=== PATIENT | female | born 1960 | race Caucasian/White ===

== ENCOUNTER 2023-04-04 16:25 | Observation (INO) | payer MEDICARE ==
[2023-04-04 18:08] LABS: Absolute Neutrophil Ct (ANC) 12.97 x10^3/uL (1.4-6.9); BASOPHIL % 0.3 % (0.0-0.4); Basophil (Absolute #) 0.04 x10^3/uL (0-0.4); Eosinophil (Absolute #) 0 x10^3/uL (0-0.5); Hemoglobin 12.8 g/dL (12.0-16.0); IMMATURE GRAN # 0.07 x10^3u/L (0.00-0.03); IMMATURE GRAN % 0.5 % (0.00-0.4); Lymphocyte (Absolute #) 1.69 x10^3/uL (1.0-4.6); Lymphocytes % 11.1 % (24.0-44.0); Mean Corpuscular Hemoglobin 30.8 pg (26-32); Mean Corpuscular Hgb Concent. 30.5 g/dL (32-36); Mean Platelet Volume 9.5 fL (7.5-11.0); Monocyte (Absolute #) 0.39 x10^3/uL (0.0-1.3); Monocytes % 2.6 % (0.0-12.0); Neutrophil % 85.5 % (36.0-66.0); Platelet Count 357 x10^3/uL (150-450); Red Blood Count 4.16 x10^6/uL (4.1-5.4); Red Cell Distribution Width 13.3 % (11.5-14.0); White Blood Count 15.2 x10^3/uL (4.0-10.5)
[2023-04-04 18:28] LABS: ALBUMIN 4.7 g/dL (3.5-5.0); ALKALINE PHOSPHATASE 175 U/L (38-126); BLOOD UREA NITROGEN 27 mg/dL (7-17); CHLORIDE 99 mmol/L (98-107); Calcium 9.7 mg/dL (8.4-10.2); EST GLOMERULAR FILTRATION RATE 84.3 ML/MIN; Potassium 5.6 mmol/L (3.5-5.1); SGOT/AST 22 U/L (14-36); SGPT/ALT 18 U/L (0-35); SODIUM 129 mmol/L (137-145); Total Protein 7.7 g/dL (6.3-8.2)
[2023-04-04 18:41] LABS: Glucose 556 mg/dL (74-106)
[2023-04-04 18:42] LABS: Carbon Dioxide < 5 mmol/L (22-30)
[2023-04-04] MEDS ORDERED: Sodium Chloride 0.9% 1000 ML 1,000 ML IV STA (19:45)
--- NOTE | 2023-04-04 19:52 | ERPHSYRPT ---
- History of Present Illness Time Seen by Provider: 04/04/23 17:00 Source: patient Exam Limitations: no limitations Patient Subjective Stated Complaint: C/O high blood sugar that she just realized was happening prior to coming to the ER. States she knew it was high related to symptom of nausea. Triage Nursing Assessment: Patient brought back to ER. She is alert and oriented but anxious. She is speaking very rapidly. Patient on her cell phone for most of the triage. No active vomitting. JESSICA DICKSON. Blood sugar per ER glucometer at 16:45 is 524. Physician History: Patient is a 62-year-old female type II diabetic presents to our ED for evaluation of elevated blood glucose. Patient states she took her sliding scale insulin today which translated to 2 units of NovoLog. Patient rechecked her glucose and it was still elevated. No other complaints. Patient tachycardic upon arrival to our ED. No fever. Patient appeared somewhat anxious. Timing/Duration: today Severity: moderate Modifying Factors: Improves With: nothing Associated Symptoms: denies symptoms Allergies/Adverse Reactions: Latex, Natural Rubber Allergy (Verified 04/04/23 16:52) Penicillins Allergy (Verified 04/04/23 16:52) Home Medications: Atorvastatin Calcium [Lipitor 40Mg] 1 tab PO DAILY 04/04/23 [History] Insulin Aspart [Novolog] See Protocol SQ AC 04/04/23 [History] Insulin Glargine [Lantus Insulin] 25 units SQ HS 04/04/23 [History] Losartan Potassium 50 mg [Cozaar 50 MG] 1 tab PO DAILY 04/04/23 [History] PANTOPRAZOLE 40 mg Tablet [Protonix 40MG Tablet] 1 tab PO DAILY 04/04/23 [History] Sucralfate 1 gm [Carafate 1 GM] 1 tab PO ACHS 04/04/23 [History] carvediloL [Carvedilol] 1 tab PO BID 04/04/23 [History] clonazePAM [Clonazepam] 1 tab PO BID PRN 04/04/23 [History] Hx Tetanus, Diphtheria Vaccination/Date Given: Yes Hx Influenza Vaccination/Date Given: No Hx Pneumococcal Vaccination/Date Given: No Immunizations Up to Date: Yes Travel Risk - International Travel Have you traveled outside of the country in past 3 weeks: No - Coronavirus Screening Are you exhibiting any of the following symptoms?: No Close contact with a COVID-19 positive Pt in past 14-21 Days: No - Vaccine Status Have you recieved a Covid-19 vaccination: No - Review of Systems Constitutional: No Symptoms, No Fever, No Chills Eyes: No Symptoms Ears, Nose, & Throat: No Symptoms Respiratory: No Symptoms, No Cough, No Dyspnea Cardiac: No Symptoms, No Chest Pain, No Edema, No Syncope Abdominal/Gastrointestinal: No Symptoms, No Abdominal Pain, No Nausea, No Vomiting, No Diarrhea Genitourinary Symptoms: No Symptoms, No Dysuria Musculoskeletal: No Symptoms, No Back Pain, No Neck Pain Skin: No Symptoms, No Rash Neurological: No Symptoms, No Dizziness, No Focal Weakness, No Sensory Changes Psychological: No Symptoms Endocrine: No Symptoms Hematologic/Lymphatic: No Symptoms Immunological/Allergic: No Symptoms All Other Systems: Reviewed and Negative - Past Medical History Pertinent Past Medical History: Yes Cardiac History: High Cholesterol, Hypertension Endocrine Medical History: Diabetes Type II Musculoskeletal History: Fractures, Other Psycho-Social History: Anxiety, Depression - Past Surgical History Past Surgical History: Yes Gastrointestinal: Appendectomy Other Surgical History: right elbow, right shoulder, right ankle, c spine fusion, lumbar spine fusion - Social History Smoking Status: Former smoker Exposure to second hand smoke: No Drug Use: none Patient Lives Alone: No - Nursing Vital Signs Nursing Vital Signs: Initial Vital Signs Temperature 97.7 F 04/04/23 16:45 Pulse Rate 136 H 04/04/23 16:45 Respiratory Rate 22 04/04/23 16:45 Blood Pressure 108/58 04/04/23 16:45 O2 Sat by Pulse Oximetry 100 04/04/23 16:45 Pain Scale Pain Intensity 0 - Physical Exam General Appearance: no apparent distress, alert, other (Who is my respiration observed) Eye Exam: PERRL/EOMI, eyes nml inspection Ears, Nose, Throat Exam: normal ENT inspection, TMs normal, pharynx normal, moist mucous membranes Neck Exam: normal inspection, non-tender, supple, full range of motion Respiratory Exam: normal breath sounds, lungs clear, airway intact, No respiratory distress Cardiovascular Exam: regular rate/rhythm, normal heart sounds, normal peripheral pulses Gastrointestinal/Abdomen Exam: soft, normal bowel sounds, No tenderness, No mass Back Exam: normal inspection, normal range of motion, No CVA tenderness, No vertebral tenderness Extremity Exam: normal inspection, normal range of motion, pelvis stable Neurologic Exam: alert, oriented x 3, cooperative, normal mood/affect, nml cerebellar function, nml station & gait, sensation nml, No motor deficits Skin Exam: normal color, warm, dry, No rash Lymphatic Exam: No adenopathy SpO2 Interpretation: normal SpO2: 100 O2 Delivery: Room Air - Course Nursing assessment & vital signs reviewed: Yes Ordered Tests: Active Orders 24 hr Category Date Time Status EKG-ER Only STAT Care 04/04/23 19:45 Active IV Insertion STAT Care 04/04/23 19:45 Active Pulse Oximetry (ED) STAT Care 04/04/23 19:45 Active CBC W DIFF Stat Lab 04/04/23 17:32 Completed CMP Stat Lab 04/04/23 18:00 Completed PHOSPHOROUS Stat Lab 04/04/23 19:47 Completed POCT GLUCOSE Stat Lab 04/04/23 16:45 Completed VENOUS BLOOD GAS Urgent Lab 04/04/23 19:58 Received Transfer Order Routine Transfer 04/04/23 Ordered Medication Summary Generic Name Dose Route Start Last Admin Trade Name Freq PRN Reason Stop Dose Admin Sodium Chloride 1,000 mls @ 999 mls/hr 04/04/23 19:45 Sodium Chloride 0.9% 1000 Ml IV 04/04/23 20:45 .Q1H1M STA INSULIN REGULAR IN 0.9 % NACL 100 unit in 100 mls @ 6.37 mls/hr 04/04/23 19:57 Myxredlin 100 Unit/100 Ml Bag IV 05/04/23 19:56 .[id number] PRN HYPERGLYCEMIA Protocol 0.1 UNIT/KG/HR Lab/Rad Data: Laboratory Result Diagrams 04/04/23 17:32 04/04/23 18:00 Laboratory Results 04/04/23 04/04/23 04/04/23 Range/Units 19:47 18:00 17:32 WBC 15.2 H (4.0-10.5) x10^3/uL RBC 4.16 (4.1-5.4) x10^6/uL Hgb 12.8 (12.0-16.0) g/dL Hct 42.0 (35-47) % MCV 101.0 H (78-100) fL MCH 30.8 (26-32) pg MCHC 30.5 L (32-36) g/dL RDW 13.3 (11.5-14.0) % Plt Count 357 (150-450) x10^3/uL MPV 9.5 (7.5-11.0) fL Gran % 85.5 H (36.0-66.0) % Immature Gran % (Auto) 0.5 H (0.00-0.4) % Nucleat RBC Rel Count 0.0 (0.00-0.1) % Eos # (Auto) 0 (0-0.5) x10^3/uL Immature Gran # (Auto) 0.07 H (0.00-0.03) x10^3u/L Absolute Lymphs (auto) 1.69 (1.0-4.6) x10^3/uL Absolute Monos (auto) 0.39 (0.0-1.3) x10^3/uL Absolute Nucleated RBC 0.00 (0.00-0.01) x10^3u/L Lymphocytes % 11.1 L (24.0-44.0) % Monocytes % 2.6 (0.0-12.0) % Eosinophils % 0.0 (0.00-5.0) % Basophils % 0.3 (0.0-0.4) % Absolute Granulocytes 12.97 H (1.4-6.9) x10^3/uL Basophils # 0.04 (0-0.4) x10^3/uL Sodium 129 L (137-145) mmol/L Potassium 5.6 H (3.5-5.1) mmol/L Chloride 99 (98-107) mmol/L Carbon Dioxide < 5 L* (22-30) mmol/L Anion Gap TNP BUN 27 H (7-17) mg/dL Creatinine 0.80 (0.52-1.04) mg/dL Estimated GFR 84.3 ML/MIN Glucose 556 H* (74-106) mg/dL POC Glucometer (50 to 500) mg/dL Calcium 9.7 (8.4-10.2) mg/dL Phosphorus 5.5 H (2.5-4.5) mg/dL Total Bilirubin 0.90 (0.2-1.3) mg/dL AST 22 (14-36) U/L ALT 18 (0-35) U/L Alkaline Phosphatase 175 H (38-126) U/L Serum Total Protein 7.7 (6.3-8.2) g/dL Albumin 4.7 (3.5-5.0) g/dL 04/04/23 Range/Units 16:45 WBC (4.0-10.5) x10^3/uL RBC (4.1-5.4) x10^6/uL Hgb (12.0-16.0) g/dL Hct (35-47) % MCV (78-100) fL MCH (26-32) pg MCHC (32-36) g/dL RDW (11.5-14.0) % Plt Count (150-450) x10^3/uL MPV (7.5-11.0) fL Gran % (36.0-66.0) % Immature Gran % (Auto) (0.00-0.4) % Nucleat RBC Rel Count (0.00-0.1) % Eos # (Auto) (0-0.5) x10^3/uL Immature Gran # (Auto) (0.00-0.03) x10^3u/L Absolute Lymphs (auto) (1.0-4.6) x10^3/uL Absolute Monos (auto) (0.0-1.3) x10^3/uL Absolute Nucleated RBC (0.00-0.01) x10^3u/L Lymphocytes % (24.0-44.0) % Monocytes % (0.0-12.0) % Eosinophils % (0.00-5.0) % Basophils % (0.0-0.4) % Absolute Granulocytes (1.4-6.9) x10^3/uL Basophils # (0-0.4) x10^3/uL Sodium (137-145) mmol/L Potassium (3.5-5.1) mmol/L Chloride (98-107) mmol/L Carbon Dioxide (22-30) mmol/L Anion Gap BUN (7-17) mg/dL Creatinine (0.52-1.04) mg/dL Estimated GFR ML/MIN Glucose (74-106) mg/dL POC Glucometer 524 H* (50 to 500) mg/dL Calcium (8.4-10.2) mg/dL Phosphorus (2.5-4.5) mg/dL Total Bilirubin (0.2-1.3) mg/dL AST (14-36) U/L ALT (0-35) U/L Alkaline Phosphatase (38-126) U/L Serum Total Protein (6.3-8.2) g/dL Albumin (3.5-5.0) g/dL - Progress Progress: improved Progress Note: Case discussed with Dr. Mayo at 8:[address] Mayo accepts admission. Plan of care discussed with patient. She agrees to admission to [facility] for further evaluation and treatment of DKA. Admit orders completed. Patient is a 62-year-old female type II diabetic presents to our ED with high blood sugar read on her glucometer as well as rapid respiration. Patient appears to be experiencing immigration coordinator small respiration. Workup reveals a profound anion gap acidosis with hyperglycemia. No other symptomology. Urinalysis pending. Pulmonary exam is nonremarkable. Patient afebrile. Patient has leukocytosis of 15. Hyponatremia of 129 however erected sodium is 135. Bicarb less than 5. Patient has a 27 BUN and creatinine 0.8. BUN to creatinine ratio consistent with dehydration. Patient will require hospitalization for further evaluation and treatment. Admit orders to ICU entered. Potassium is 5.6. No indication for additional potassium at this time. Portions of this note were created with voice recognition technology. There may be grammatical, spelling, punctuation or sound alike errors Complexity problem addressed is high, severe exacerbation with threat to bodily function Critical care time is 180 minutes. Patient is in DKA with profound acidosis. Immediate action indicated to prevent further deterioration. Complex of data reviewed and analyzed is extensive. Test ordered test reviewed. Results analyzed and correlated clinically. Management discussed with hospitalist who accepts admission to observation. Risk of complication and or risk of morbidity/mortality of patient management is high. Patient requires hospitalization/intensive care unit management for further evaluation and treatment of diabetic ketoacidosis Vital stable. Time spent admit patient is approximately 20 minutes. Plan of care established for shared decision making. Portions of this note were created with voice recognition technology. There may be grammatical, spelling, punctuation or sound alike errors 04/04/23 20:09 Discussed with : Other (Maria Esther) Will see patient in: hospital (observation) Counseled pt/family regarding: lab results, diagnosis, rad results - Departure Departure Disposition: Observation Clinical Impression: DKA (diabetic ketoacidosis), Leukocytosis, Hyponatremia, High anion gap metabolic acidosis, Dehydration, Hyperglycemia Condition: Stable Critical Care Time: No Referrals: RYLIE RUIZ DO [Primary Care Provider] - Follow up/PCP as directed
[2023-04-04 20:06] LABS: VBG BASE EXCESS -19.5 (-2.0-2.0); VBG CARBOXYHEMOGLOBIN 5.2 % T HGB (0.0-6.9); VBG HEMOGLOBIN 13.5; VBG O2 SATURATION 70.8 (95-100)
[2023-04-04 20:07] LABS: VBG POTASSIUM 6.5 (3.5-5.1); VBG pH 7.13 (7.32-7.42)
[2023-04-04] MEDS ORDERED: Sodium Chloride 0.9% 1000 ML 1,000 ML ONE (20:14)
[2023-04-04] MEDS: MYXREDLIN 100 UNIT/100 ML BAG 100 UNIT/100 ML PLAST..BAG IV PRN ×2 (20:17→22:53)
--- NOTE | 2023-04-04 20:47 | PCM.HP ---
History of Present Illness - Chief Complaint Chief Complaint: high blood sugars Date: 04/04/23 History of Present Illness: Ms. Muñoz is a 62 year old female with a past medical history significant for hypertension, hyperlipidemia, GERD and diabetes with 7 previous episodes of DKA who recently moved to the area and had no established with a PCP. She was monitoring her sugars but noticed that they were continuing to rise despite giving herself some sliding scale insulin. She started breathing more rapidly, which she took to be a sign of DKA, and came to the ER. There, she was found to have a blood sugar > 500 associated with a sodium of 129 and bicarb < 5. She was tachycardic with HR in the 130s. She was given IVFs, insulin and recommended for admission. - Review of Systems Constitutional: No Fever, No Chills, No Fatigue Eyes: No Eye Redness Ears, Nose, & Throat: No Ear Discharge Respiratory: No Cough, No Short Of Breath, No Wheezing Cardiac: No Chest Pain, No Edema, No Palpitations Abdominal/Gastrointestinal: No Abdominal Pain, No Nausea, No Vomiting, No Diarrhea Genitourinary Symptoms: No Dysuria, No Frequency, No Hematuria Musculoskeletal: No Back Pain, No Neck Pain, No Joint Pain Skin: No Cellulitis, No Rash Neurological: No Dizziness, No Focal Weakness, No Headache Psychological: No Memory Loss, No Mood Changes Endocrine: Polyuria Hematologic/Lymphatic: No Blood Clots, No Easy Bleeding All Other Systems: Reviewed and Negative Medications & Allergies Home Medications: Home Medication List Atorvastatin Calcium [Lipitor 40Mg] 1 tab PO DAILY 04/04/23 [History Confirmed 04/04/23] Insulin Aspart [Novolog] See Protocol SQ AC 04/04/23 [History Confirmed 04/04/23] Insulin Glargine [Lantus Insulin] 25 units SQ HS 04/04/23 [History Confirmed 04/04/23] Losartan Potassium 50 mg [Cozaar 50 MG] 1 tab PO DAILY 04/04/23 [History Confirmed 04/04/23] PANTOPRAZOLE 40 mg Tablet [Protonix 40MG Tablet] 1 tab PO DAILY 04/04/23 [History Confirmed 04/04/23] Sucralfate 1 gm [Carafate 1 GM] 1 tab PO ACHS 04/04/23 [History Confirmed 04/04/23] carvediloL [Carvedilol] 1 tab PO BID 04/04/23 [History Confirmed 04/04/23] clonazePAM [Clonazepam] 1 tab PO BID PRN 04/04/23 [History Confirmed 04/04/23] Allergies/Adverse Reactions: Allergies Allergy/AdvReac Type Severity Reaction Status Date / Time Latex, Natural Rubber Allergy Verified 04/04/23 16:52 Penicillins Allergy Verified 04/04/23 16:52 - Past Medical History Past Medical History: Yes Cardiac History: High Cholesterol, Hypertension Endocrine Medical History: Diabetes Type II Musculoskelatal History: Fractures, Other Pyscho-Social History: Anxiety, Depression - Past Surgical History Past Surgical History: Yes GI Surgical History: Appendectomy Other Surgical History: right elbow, right shoulder, right ankle, c spine fusion, lumbar spine fusion - Social History Smoking Status: Former smoker Exposure to second hand smoke: No Alcohol: None Drug Use: none - Physical Exam Vital Signs: Vital Signs - 24 hr Temp Pulse Resp BP Pulse Ox 04/04/23 20:16 100 04/04/23 20:12 96 04/04/23 16:45 97.7 F 136 H 22 108/58 100 General Appearance: no apparent distress Neurologic Exam: alert, normal mood/affect, No confusion, No slurred speech Ears, Nose, Throat Exam: dry mucous membranes Neck Exam: supple Respiratory Exam: lungs clear Cardiovascular Exam: tachycardia Gastrointestinal/Abdomen Exam: soft Extremity Exam: No swelling, No tenderness Skin Exam: warm, No rash, No jaundice Results - Labs Lab/Micro Results: Lab Results-Last 24 Hours 04/04/23 04/04/23 04/04/23 Range/Units 16:45 17:32 18:00 WBC 15.2 H (4.0-10.5) x10^3/uL RBC 4.16 (4.1-5.4) x10^6/uL Hgb 12.8 (12.0-16.0) g/dL Hct 42.0 (35-47) % MCV 101.0 H (78-100) fL MCH 30.8 (26-32) pg MCHC 30.5 L (32-36) g/dL RDW 13.3 (11.5-14.0) % Plt Count 357 (150-450) x10^3/uL MPV 9.5 (7.5-11.0) fL Gran % 85.5 H (36.0-66.0) % Immature Gran % (Auto) 0.5 H (0.00-0.4) % Nucleat RBC Rel Count 0.0 (0.00-0.1) % Eos # (Auto) 0 (0-0.5) x10^3/uL Immature Gran # (Auto) 0.07 H (0.00-0.03) x10^3u/L Absolute Lymphs (auto) 1.69 (1.0-4.6) x10^3/uL Absolute Monos (auto) 0.39 (0.0-1.3) x10^3/uL Absolute Nucleated RBC 0.00 (0.00-0.01) x10^3u/L Lymphocytes % 11.1 L (24.0-44.0) % Monocytes % 2.6 (0.0-12.0) % Eosinophils % 0.0 (0.00-5.0) % Basophils % 0.3 (0.0-0.4) % Absolute Granulocytes 12.97 H (1.4-6.9) x10^3/uL Basophils # 0.04 (0-0.4) x10^3/uL pO2/FiO2 Ratio % VBG pH (7.32-7.42) VBG pCO2 at Pat Temp (42-55) mm/Hg VBG pO2 at Pat Temp (25-40) mm/Hg VBG HCO3 (22-28) meq/L VBG O2 Sat (Garrett) (95-100) VBG Base Excess (-2.0-2.0) VBG Hemoglobin VBG Carboxyhemoglobin (0.0-6.9) % T HGB POC Potassium (3.5-5.1) Sodium 129 L (137-145) mmol/L Potassium 5.6 H (3.5-5.1) mmol/L Chloride 99 (98-107) mmol/L Carbon Dioxide < 5 L* (22-30) mmol/L Anion Gap TNP BUN 27 H (7-17) mg/dL Creatinine 0.80 (0.52-1.04) mg/dL Estimated GFR 84.3 ML/MIN Glucose 556 H* (74-106) mg/dL POC Glucometer 524 H* (50 to 500) mg/dL Calcium 9.7 (8.4-10.2) mg/dL Phosphorus (2.5-4.5) mg/dL Total Bilirubin 0.90 (0.2-1.3) mg/dL AST 22 (14-36) U/L ALT 18 (0-35) U/L Alkaline Phosphatase 175 H (38-126) U/L Serum Total Protein 7.7 (6.3-8.2) g/dL Albumin 4.7 (3.5-5.0) g/dL 04/04/23 04/04/23 04/04/23 Range/Units 19:47 19:58 20:17 WBC (4.0-10.5) x10^3/uL RBC (4.1-5.4) x10^6/uL Hgb (12.0-16.0) g/dL Hct (35-47) % MCV (78-100) fL MCH (26-32) pg MCHC (32-36) g/dL RDW (11.5-14.0) % Plt Count (150-450) x10^3/uL MPV (7.5-11.0) fL Gran % (36.0-66.0) % Immature Gran % (Auto) (0.00-0.4) % Nucleat RBC Rel Count (0.00-0.1) % Eos # (Auto) (0-0.5) x10^3/uL Immature Gran # (Auto) (0.00-0.03) x10^3u/L Absolute Lymphs (auto) (1.0-4.6) x10^3/uL Absolute Monos (auto) (0.0-1.3) x10^3/uL Absolute Nucleated RBC (0.00-0.01) x10^3u/L Lymphocytes % (24.0-44.0) % Monocytes % (0.0-12.0) % Eosinophils % (0.00-5.0) % Basophils % (0.0-0.4) % Absolute Granulocytes (1.4-6.9) x10^3/uL Basophils # (0-0.4) x10^3/uL pO2/FiO2 Ratio 21.0 % VBG pH 7.13 L* (7.32-7.42) VBG pCO2 at Pat Temp 24 L (42-55) mm/Hg VBG pO2 at Pat Temp 45 H (25-40) mm/Hg VBG HCO3 8.0 L* (22-28) meq/L VBG O2 Sat (Garrett) 70.8 L (95-100) VBG Base Excess -19.5 L (-2.0-2.0) VBG Hemoglobin 13.5 VBG Carboxyhemoglobin 5.2 (0.0-6.9) % T HGB POC Potassium 6.5 H* (3.5-5.1) Sodium (137-145) mmol/L Potassium (3.5-5.1) mmol/L Chloride (98-107) mmol/L Carbon Dioxide (22-30) mmol/L Anion Gap BUN (7-17) mg/dL Creatinine (0.52-1.04) mg/dL Estimated GFR ML/MIN Glucose (74-106) mg/dL POC Glucometer 503 H* (50 to 500) mg/dL Calcium (8.4-10.2) mg/dL Phosphorus 5.5 H (2.5-4.5) mg/dL Total Bilirubin (0.2-1.3) mg/dL AST (14-36) U/L ALT (0-35) U/L Alkaline Phosphatase (38-126) U/L Serum Total Protein (6.3-8.2) g/dL Albumin (3.5-5.0) g/dL Accuchecks Date 04/04/23 Time 16:45 Assessment/Plan (1) DKA (diabetic ketoacidosis) Current Visit: Yes Status: Acute Qualifiers: Diabetes mellitus type: type 2 Diabetes mellitus complication detail: without coma Qualified Code(s): E11.10 - Type 2 diabetes mellitus with ketoacidosis without coma Assessment & Plan: DKA likely from underdosage of insulin, no sign of active infection/trigger 1. Admit to the hospital 2. IVFs - no need for bicarb with pH 7.13 3. Insulin drip 4. Monitor blood sugars 5. Measure anion gap, pH Code(s): E11.10 - TYPE 2 DIABETES MELLITUS WITH KETOACIDOSIS WITHOUT COMA (2) Hyponatremia Current Visit: Yes Status: Acute Assessment & Plan: Pseudohyponatremia likely from elevated blood sugars +/- some hypovolemia 1. NS IVFs 2. Monitor electrolytes Code(s): E87.1 - HYPO-OSMOLALITY AND HYPONATREMIA (3) Hyperkalemia Current Visit: Yes Status: Acute Assessment & Plan: Likely from prerenal azotemia and effects of ARB 1. Low K diet 2. IVFs 3. Hold Losartan 4. Watch electrolytes closely Code(s): E87.5 - HYPERKALEMIA (4) Hypertension Current Visit: Yes Status: Acute Qualifiers: Hypertension type: primary hypertension Qualified Code(s): I10 - Essential (primary) hypertension Assessment & Plan: Patient with intravascular volume depletion and hypotension associated with tachycardia 1. Will hold Losartan 2. Low dose beta radha 3. Isotonic fluid for bp support 4. Monitor blood pressure readings Code(s): I10 - ESSENTIAL (PRIMARY) HYPERTENSION Telemedicine Encounter - Telemedicine Encounter Telemedicine Encounter: The entirety of this encounter was performed via Telemedicine"
[2023-04-04 20:50] LABS: INFLUENZA A NEGATIVE (NEGATIVE); INFLUENZA B NEGATIVE (NEGATIVE); RESPIRATORY SYNCTIAL VIRUS NEGATIVE (NEGATIVE); SARS-CoV-2 Xpert Express NEGATIVE (NEGATIVE)
[2023-04-04] MEDS ORDERED: Lactated Ringers 1,000 ML IV SCH (21:00)
[2023-04-04] MEDS ORDERED: Lactated Ringers 1,000 ML IV ONE (21:59)
[2023-04-04] MEDS ORDERED: Robaxin PO PRN (22:42)
[2023-04-04] MEDS: Coreg PO SCH (22:49)
[2023-04-05] MEDS ORDERED: D5W/0.45NS W/ 20mEq KCl 1000 ML 1,000 ML IV ONE (00:05)
[2023-04-05] MEDS ORDERED: D5W/0.45NS W/ 20mEq KCl 1000 ML 1,000 ML IV SCH (00:30)
[2023-04-05] MEDS: D5W/0.45NS W/ 20mEq KCl 1000 ML 1,000 ML IV SCH ×2 (00:30→06:16)
[2023-04-05 02:06] LABS: ALBUMIN 3.5 g/dL (3.5-5.0); ANION GAP 18.8 MEQ/L (5-15); BILIRUBIN,TOTAL 0.4 mg/dL (0.2-1.3); Calcium 8.8 mg/dL (8.4-10.2); Creatinine 1 0.63 mg/dL (0.52-1.04); EST GLOMERULAR FILTRATION RATE 101.5 ML/MIN; Potassium 4.3 mmol/L (3.5-5.1); Total Protein 6.3 g/dL (6.3-8.2)
[2023-04-05 05:29] LABS: Hematocrit 33.3 % (35-47); Hemoglobin 11.3 g/dL (12.0-16.0); Mean Cell Volume 92.5 fL (78-100); Mean Corpuscular Hemoglobin 31.4 pg (26-32); Mean Corpuscular Hgb Concent. 33.9 g/dL (32-36); Mean Platelet Volume 8.9 fL (7.5-11.0); Platelet Count 294 x10^3/uL (150-450); Red Cell Distribution Width 13.4 % (11.5-14.0)
[2023-04-05 06:11] LABS: ALBUMIN 3.2 g/dL (3.5-5.0); ANION GAP 14.1 MEQ/L (5-15); BILIRUBIN,TOTAL 0.4 mg/dL (0.2-1.3); Creatinine 1 0.58 mg/dL (0.52-1.04); EST GLOMERULAR FILTRATION RATE 103.5 ML/MIN; Potassium 4.2 mmol/L (3.5-5.1); Total Protein 5.8 g/dL (6.3-8.2)
[2023-04-05] MEDS ORDERED: Robaxin PO PRN (06:47)
[2023-04-05 06:53] LABS: VBG BASE EXCESS -7.5 (-2.0-2.0); VBG CARBOXYHEMOGLOBIN 1.3 % T HGB (0.0-6.9); VBG HCO3- 16.9 meq/L (22-28); VBG HEMOGLOBIN 11.1; VBG O2 SATURATION 99.6 (95-100); VBG POTASSIUM 3.9 (3.5-5.1)
[2023-04-05 06:54] LABS: VBG pH 7.36 (7.32-7.42)
[2023-04-05 08:38] LABS: MAGNESIUM 1.7 mg/dL (1.6-2.3); PHOSPHOROUS 2.5 mg/dL (2.5-4.5)
[2023-04-05] MEDS: Coreg PO SCH (09:02)
[2023-04-05] MEDS: Protonix 40MG Tablet PO SCH (09:02)
[2023-04-05 09:51] LABS: ANION GAP 12.5 MEQ/L (5-15); BILIRUBIN,TOTAL 0.7 mg/dL (0.2-1.3); Calcium 9.3 mg/dL (8.4-10.2); Creatinine 1 0.58 mg/dL (0.52-1.04); EST GLOMERULAR FILTRATION RATE 103.5 ML/MIN; Potassium 4.5 mmol/L (3.5-5.1); Total Protein 6.9 g/dL (6.3-8.2)
[2023-04-05] MEDS ORDERED: NON-FORMULARY ITEM (Acetaminophen [Tylenol] 325 MG Capsule) PO PRN (10:10)
[2023-04-05] MEDS ORDERED: TYLENOL 325 MG PO PRN (10:22)
[2023-04-05] MEDS ORDERED: Coreg PO ONE (10:30)
[2023-04-05] MEDS: BUSPAR 5 MG PO SCH ×2 (10:40→21:29)
[2023-04-05] MEDS: Imdur 30 MG PO SCH (10:40)
[2023-04-05] MEDS: Cozaar 50 MG PO SCH (10:41)
[2023-04-05] MEDS: Lantus Insulin SQ SCH ×2 (10:41→20:41)
[2023-04-05] MEDS: ACYCLOVIR PO SCH (10:41)
[2023-04-05] MEDS: Carafate 1 GM PO SCH ×3 (10:41→21:29)
[2023-04-05] MEDS: clonazePAM PO PRN ×2 (10:46→22:43)
[2023-04-05] MEDS: Robaxin PO SCH ×3 (10:57→21:29)
--- NOTE | 2023-04-05 11:32 | PCM.NOTE ---
Date and Time: 04/05/23 1124 Subjective Assessment: Ms. Muñoz is a 62 year old female with a past medical history significant for hypertension, hyperlipidemia, GERD and diabetes with 7 previous episodes of DKA. Most recently this happened 1 month ago and was at [facility]. She reports she had some changes in her insulin which has caused her most recent issues. She recently moved to the area and has no established PCP or contact officer. She was monitoring her sugars at home but noticed that they were continuing to rise despite giving herself some sliding scale insulin. She started breathing more rapidly, which she took to be a sign of DKA, and came to the ER. There, she was found to have a blood sugar > 500 associated with a sodium of 129 and bicarb < 5. She was tachycardic with HR in the 130s. She was given IVFs, insulin and recommended for admission. She has been on an insulin gtt and this has been stopped this morning. Gap is closed and she was transitioned to her home insulin dose. She is no longer having N/V. She was able to tolerate a clear liquid diet. Will transition her diet since she is doing well. Will change her to a med-surg bed. Na+ and K+ are at baseline. If she continues to do well she can leave this afternoon or in the AM. She denies any further concerns at this time. - Review of Systems Constitutional: No Fever, No Chills Eyes: No Symptoms Ears, Nose, & Throat: No Symptoms Respiratory: No Cough, No Short Of Breath Cardiac: No Chest Pain, No Edema, No Syncope Abdominal/Gastrointestinal: No Abdominal Pain, No Nausea, No Vomiting, No Diarrhea Genitourinary Symptoms: No Dysuria Musculoskeletal: No Back Pain, No Neck Pain Skin: No Rash Neurological: No Dizziness, No Focal Weakness, No Sensory Changes Psychological: No Symptoms Endocrine: No Symptoms Hematologic/Lymphatic: No Symptoms Immunological/Allergic: No Symptoms Objective Exam General Appearance: no apparent distress, alert Neurologic Exam: alert, oriented x 3, cooperative, normal mood/affect, nml cerebellar function, sensation nml, No motor deficits Skin Exam: normal color, warm, dry Eye Exam: PERRL, EOMI, eyes nml inspection Ears, Nose, Throat Exam: normal ENT inspection, pharynx normal, moist mucous membranes Neck Exam: normal inspection, non-tender, supple, full range of motion Respiratory Exam: normal breath sounds, lungs clear, No respiratory distress Cardiovascular Exam: regular rate/rhythm, normal heart sounds Gastrointestinal/Abdomen Exam: soft, No tenderness, No mass Extremity Exam: normal inspection, normal range of motion Back Exam: normal inspection, normal range of motion, No CVA tenderness, No vertebral tenderness Pelvic Exam: deferred Rectal Exam: deferred OBJECTIVE DATA Vital Signs: Vital Signs - 24 hr Temp Pulse Resp BP BP Pulse Ox 04/05/23 10:00 99 H 21 81/65 04/05/23 09:02 109 H 16 118/78 99 04/05/23 09:00 102 H 18 132/111 88 L 04/05/23 08:00 98.1 F 95 H 18 94/59 96 04/05/23 07:00 95 H 19 101/54 96 04/05/23 06:00 95 H 17 88/50 96 04/05/23 05:12 97 H 20 94/56 96 04/05/23 05:00 95 H 21 89/51 99 04/05/23 04:00 99 F 96 H 18 107/55 97 04/05/23 03:00 100 H 20 97/53 98 04/05/23 02:30 103 H 15 93/54 97 04/05/23 02:13 99 H 22 105/56 97 04/05/23 01:30 102 H 15 97/52 97 04/05/23 01:00 106 H 21 97/51 100 04/05/23 00:30 122 H 17 100/61 100 04/05/23 00:00 117 H 27 H 107/67 100 04/04/23 23:31 121 H 19 110/56 100 04/04/23 23:24 126 H 23 149/85 100 04/04/23 22:00 132 H 100 04/04/23 21:36 123 H 17 132/67 100 04/04/23 21:35 97.3 F 130 H 24 132/67 100 04/04/23 21:25 119 H 20 139/68 99 04/04/23 20:27 120 H 22 130/56 100 04/04/23 20:16 100 04/04/23 20:12 96 04/04/23 19:20 118 H 22 129/84 100 04/04/23 16:45 97.7 F 136 H 22 108/58 100 Pain Assessment - Last Documented Pain Intensity 5 Intake and Output: Intake & Output 04/02/23 04/03/23 04/04/23 04/05/23 11:59 11:59 11:59 11:59 Intake Total 0 Output Total 1300 Balance -1300 Weight 61.1 kg Lab Results: Lab Results-Last 24 Hours 04/04/23 04/04/23 04/04/23 Range/Units 16:45 17:32 18:00 WBC 15.2 H (4.0-10.5) x10^3/uL RBC 4.16 (4.1-5.4) x10^6/uL Hgb 12.8 (12.0-16.0) g/dL Hct 42.0 (35-47) % MCV 101.0 H (78-100) fL MCH 30.8 (26-32) pg MCHC 30.5 L (32-36) g/dL RDW 13.3 (11.5-14.0) % Plt Count 357 (150-450) x10^3/uL MPV 9.5 (7.5-11.0) fL Gran % 85.5 H (36.0-66.0) % Immature Gran % (Auto) 0.5 H (0.00-0.4) % Nucleat RBC Rel Count 0.0 (0.00-0.1) % Eos # (Auto) 0 (0-0.5) x10^3/uL Immature Gran # (Auto) 0.07 H (0.00-0.03) x10^3u/L Absolute Lymphs (auto) 1.69 (1.0-4.6) x10^3/uL Absolute Monos (auto) 0.39 (0.0-1.3) x10^3/uL Absolute Nucleated RBC 0.00 (0.00-0.01) x10^3u/L Lymphocytes % 11.1 L (24.0-44.0) % Monocytes % 2.6 (0.0-12.0) % Eosinophils % 0.0 (0.00-5.0) % Basophils % 0.3 (0.0-0.4) % Absolute Granulocytes 12.97 H (1.4-6.9) x10^3/uL Basophils # 0.04 (0-0.4) x10^3/uL pO2/FiO2 Ratio % VBG pH (7.32-7.42) VBG pCO2 at Pat Temp (42-55) mm/Hg VBG pO2 at Pat Temp (25-40) mm/Hg VBG HCO3 (22-28) meq/L VBG O2 Sat (Garrett) (95-100) VBG Base Excess (-2.0-2.0) VBG Hemoglobin VBG Carboxyhemoglobin (0.0-6.9) % T HGB POC Potassium (3.5-5.1) Sodium 129 L (137-145) mmol/L Potassium 5.6 H (3.5-5.1) mmol/L Chloride 99 (98-107) mmol/L Carbon Dioxide < 5 L* (22-30) mmol/L Anion Gap TNP BUN 27 H (7-17) mg/dL Creatinine 0.80 (0.52-1.04) mg/dL Estimated GFR 84.3 ML/MIN Glucose 556 H* (74-106) mg/dL POC Glucometer 524 H* (50 to 500) mg/dL Hemoglobin A1c (4.5-6.0) % Calcium 9.7 (8.4-10.2) mg/dL Phosphorus (2.5-4.5) mg/dL Magnesium (1.6-2.3) mg/dL Total Bilirubin 0.90 (0.2-1.3) mg/dL AST 22 (14-36) U/L ALT 18 (0-35) U/L Alkaline Phosphatase 175 H (38-126) U/L Serum Total Protein 7.7 (6.3-8.2) g/dL Albumin 4.7 (3.5-5.0) g/dL Influenza Type A Ag (NEGATIVE) Influenza Type B Ag (NEGATIVE) RSV (PCR) (NEGATIVE) SARS-CoV-2 (PCR) (NEGATIVE) 04/04/23 04/04/23 04/04/23 Range/Units 19:47 19:58 20:00 WBC (4.0-10.5) x10^3/uL RBC (4.1-5.4) x10^6/uL Hgb (12.0-16.0) g/dL Hct (35-47) % MCV (78-100) fL MCH (26-32) pg MCHC (32-36) g/dL RDW (11.5-14.0) % Plt Count (150-450) x10^3/uL MPV (7.5-11.0) fL Gran % (36.0-66.0) % Immature Gran % (Auto) (0.00-0.4) % Nucleat RBC Rel Count (0.00-0.1) % Eos # (Auto) (0-0.5) x10^3/uL Immature Gran # (Auto) (0.00-0.03) x10^3u/L Absolute Lymphs (auto) (1.0-4.6) x10^3/uL Absolute Monos (auto) (0.0-1.3) x10^3/uL Absolute Nucleated RBC (0.00-0.01) x10^3u/L Lymphocytes % (24.0-44.0) % Monocytes % (0.0-12.0) % Eosinophils % (0.00-5.0) % Basophils % (0.0-0.4) % Absolute Granulocytes (1.4-6.9) x10^3/uL Basophils # (0-0.4) x10^3/uL pO2/FiO2 Ratio 21.0 % VBG pH 7.13 L* (7.32-7.42) VBG pCO2 at Pat Temp 24 L (42-55) mm/Hg VBG pO2 at Pat Temp 45 H (25-40) mm/Hg VBG HCO3 8.0 L* (22-28) meq/L VBG O2 Sat (Garrett) 70.8 L (95-100) VBG Base Excess -19.5 L (-2.0-2.0) VBG Hemoglobin 13.5 VBG Carboxyhemoglobin 5.2 (0.0-6.9) % T HGB POC Potassium 6.5 H* (3.5-5.1) Sodium (137-145) mmol/L Potassium (3.5-5.1) mmol/L Chloride (98-107) mmol/L Carbon Dioxide (22-30) mmol/L Anion Gap BUN (7-17) mg/dL Creatinine (0.52-1.04) mg/dL Estimated GFR ML/MIN Glucose (74-106) mg/dL POC Glucometer (50 to 500) mg/dL Hemoglobin A1c (4.5-6.0) % Calcium (8.4-10.2) mg/dL Phosphorus 5.5 H (2.5-4.5) mg/dL Magnesium (1.6-2.3) mg/dL Total Bilirubin (0.2-1.3) mg/dL AST (14-36) U/L ALT (0-35) U/L Alkaline Phosphatase (38-126) U/L Serum Total Protein (6.3-8.2) g/dL Albumin (3.5-5.0) g/dL Influenza Type A Ag NEGATIVE (NEGATIVE) Influenza Type B Ag NEGATIVE (NEGATIVE) RSV (PCR) NEGATIVE (NEGATIVE) SARS-CoV-2 (PCR) NEGATIVE (NEGATIVE) 04/04/23 04/04/23 04/04/23 Range/Units 20:17 21:13 22:05 WBC (4.0-10.5) x10^3/uL RBC (4.1-5.4) x10^6/uL Hgb (12.0-16.0) g/dL Hct (35-47) % MCV (78-100) fL MCH (26-32) pg MCHC (32-36) g/dL RDW (11.5-14.0) % Plt Count (150-450) x10^3/uL MPV (7.5-11.0) fL Gran % (36.0-66.0) % Immature Gran % (Auto) (0.00-0.4) % Nucleat RBC Rel Count (0.00-0.1) % Eos # (Auto) (0-0.5) x10^3/uL Immature Gran # (Auto) (0.00-0.03) x10^3u/L Absolute Lymphs (auto) (1.0-4.6) x10^3/uL Absolute Monos (auto) (0.0-1.3) x10^3/uL Absolute Nucleated RBC (0.00-0.01) x10^3u/L Lymphocytes % (24.0-44.0) % Monocytes % (0.0-12.0) % Eosinophils % (0.00-5.0) % Basophils % (0.0-0.4) % Absolute Granulocytes (1.4-6.9) x10^3/uL Basophils # (0-0.4) x10^3/uL pO2/FiO2 Ratio % VBG pH (7.32-7.42) VBG pCO2 at Pat Temp (42-55) mm/Hg VBG pO2 at Pat Temp (25-40) mm/Hg VBG HCO3 (22-28) meq/L VBG O2 Sat (Garrett) (95-100) VBG Base Excess (-2.0-2.0) VBG Hemoglobin VBG Carboxyhemoglobin (0.0-6.9) % T HGB POC Potassium (3.5-5.1) Sodium (137-145) mmol/L Potassium (3.5-5.1) mmol/L Chloride (98-107) mmol/L Carbon Dioxide (22-30) mmol/L Anion Gap BUN (7-17) mg/dL Creatinine (0.52-1.04) mg/dL Estimated GFR ML/MIN Glucose (74-106) mg/dL POC Glucometer 503 H* 428 H 431 H (50 to 500) mg/dL Hemoglobin A1c (4.5-6.0) % Calcium (8.4-10.2) mg/dL Phosphorus (2.5-4.5) mg/dL Magnesium (1.6-2.3) mg/dL Total Bilirubin (0.2-1.3) mg/dL AST (14-36) U/L ALT (0-35) U/L Alkaline Phosphatase (38-126) U/L Serum Total Protein (6.3-8.2) g/dL Albumin (3.5-5.0) g/dL Influenza Type A Ag (NEGATIVE) Influenza Type B Ag (NEGATIVE) RSV (PCR) (NEGATIVE) SARS-CoV-2 (PCR) (NEGATIVE) 04/04/23 04/05/23 04/05/23 Range/Units 23:05 00:03 01:06 WBC (4.0-10.5) x10^3/uL RBC (4.1-5.4) x10^6/uL Hgb (12.0-16.0) g/dL Hct (35-47) % MCV (78-100) fL MCH (26-32) pg MCHC (32-36) g/dL RDW (11.5-14.0) % Plt Count (150-450) x10^3/uL MPV (7.5-11.0) fL Gran % (36.0-66.0) % Immature Gran % (Auto) (0.00-0.4) % Nucleat RBC Rel Count (0.00-0.1) % Eos # (Auto) (0-0.5) x10^3/uL Immature Gran # (Auto) (0.00-0.03) x10^3u/L Absolute Lymphs (auto) (1.0-4.6) x10^3/uL Absolute Monos (auto) (0.0-1.3) x10^3/uL Absolute Nucleated RBC (0.00-0.01) x10^3u/L Lymphocytes % (24.0-44.0) % Monocytes % (0.0-12.0) % Eosinophils % (0.00-5.0) % Basophils % (0.0-0.4) % Absolute Granulocytes (1.4-6.9) x10^3/uL Basophils # (0-0.4) x10^3/uL pO2/FiO2 Ratio % VBG pH (7.32-7.42) VBG pCO2 at Pat Temp (42-55) mm/Hg VBG pO2 at Pat Temp (25-40) mm/Hg VBG HCO3 (22-28) meq/L VBG O2 Sat (Garrett) (95-100) VBG Base Excess (-2.0-2.0) VBG Hemoglobin VBG Carboxyhemoglobin (0.0-6.9) % T HGB POC Potassium (3.5-5.1) Sodium (137-145) mmol/L Potassium (3.5-5.1) mmol/L Chloride (98-107) mmol/L Carbon Dioxide (22-30) mmol/L Anion Gap BUN (7-17) mg/dL Creatinine (0.52-1.04) mg/dL Estimated GFR ML/MIN Glucose (74-106) mg/dL POC Glucometer 321 H 244 H 228 H (50 to 500) mg/dL Hemoglobin A1c (4.5-6.0) % Calcium (8.4-10.2) mg/dL Phosphorus (2.5-4.5) mg/dL Magnesium (1.6-2.3) mg/dL Total Bilirubin (0.2-1.3) mg/dL AST (14-36) U/L ALT (0-35) U/L Alkaline Phosphatase (38-126) U/L Serum Total Protein (6.3-8.2) g/dL Albumin (3.5-5.0) g/dL Influenza Type A Ag (NEGATIVE) Influenza Type B Ag (NEGATIVE) RSV (PCR) (NEGATIVE) SARS-CoV-2 (PCR) (NEGATIVE) 04/05/23 04/05/23 04/05/23 Range/Units 01:50 02:09 03:05 WBC (4.0-10.5) x10^3/uL RBC (4.1-5.4) x10^6/uL Hgb (12.0-16.0) g/dL Hct (35-47) % MCV (78-100) fL MCH (26-32) pg MCHC (32-36) g/dL RDW (11.5-14.0) % Plt Count (150-450) x10^3/uL MPV (7.5-11.0) fL Gran % (36.0-66.0) % Immature Gran % (Auto) (0.00-0.4) % Nucleat RBC Rel Count (0.00-0.1) % Eos # (Auto) (0-0.5) x10^3/uL Immature Gran # (Auto) (0.00-0.03) x10^3u/L Absolute Lymphs (auto) (1.0-4.6) x10^3/uL Absolute Monos (auto) (0.0-1.3) x10^3/uL Absolute Nucleated RBC (0.00-0.01) x10^3u/L Lymphocytes % (24.0-44.0) % Monocytes % (0.0-12.0) % Eosinophils % (0.00-5.0) % Basophils % (0.0-0.4) % Absolute Granulocytes (1.4-6.9) x10^3/uL Basophils # (0-0.4) x10^3/uL pO2/FiO2 Ratio % VBG pH (7.32-7.42) VBG pCO2 at Pat Temp (42-55) mm/Hg VBG pO2 at Pat Temp (25-40) mm/Hg VBG HCO3 (22-28) meq/L VBG O2 Sat (Garrett) (95-100) VBG Base Excess (-2.0-2.0) VBG Hemoglobin VBG Carboxyhemoglobin (0.0-6.9) % T HGB POC Potassium (3.5-5.1) Sodium 131 L (137-145) mmol/L Potassium 4.3 D (3.5-5.1) mmol/L Chloride 108 H (98-107) mmol/L Carbon Dioxide 9 L* (22-30) mmol/L Anion Gap 18.8 H BUN 23 H (7-17) mg/dL Creatinine 0.63 (0.52-1.04) mg/dL Estimated GFR 101.5 ML/MIN Glucose 225 H (74-106) mg/dL POC Glucometer 189 H 193 H (50 to 500) mg/dL Hemoglobin A1c (4.5-6.0) % Calcium 8.8 (8.4-10.2) mg/dL Phosphorus (2.5-4.5) mg/dL Magnesium (1.6-2.3) mg/dL Total Bilirubin 0.40 (0.2-1.3) mg/dL AST 17 (14-36) U/L ALT 14 (0-35) U/L Alkaline Phosphatase 111 (38-126) U/L Serum Total Protein 6.3 (6.3-8.2) g/dL Albumin 3.5 (3.5-5.0) g/dL Influenza Type A Ag (NEGATIVE) Influenza Type B Ag (NEGATIVE) RSV (PCR) (NEGATIVE) SARS-CoV-2 (PCR) (NEGATIVE) 04/05/23 04/05/23 04/05/23 Range/Units 04:03 04:21 05:00 WBC (4.0-10.5) x10^3/uL RBC (4.1-5.4) x10^6/uL Hgb (12.0-16.0) g/dL Hct (35-47) % MCV (78-100) fL MCH (26-32) pg MCHC (32-36) g/dL RDW (11.5-14.0) % Plt Count (150-450) x10^3/uL MPV (7.5-11.0) fL Gran % (36.0-66.0) % Immature Gran % (Auto) (0.00-0.4) % Nucleat RBC Rel Count (0.00-0.1) % Eos # (Auto) (0-0.5) x10^3/uL Immature Gran # (Auto) (0.00-0.03) x10^3u/L Absolute Lymphs (auto) (1.0-4.6) x10^3/uL Absolute Monos (auto) (0.0-1.3) x10^3/uL Absolute Nucleated RBC (0.00-0.01) x10^3u/L Lymphocytes % (24.0-44.0) % Monocytes % (0.0-12.0) % Eosinophils % (0.00-5.0) % Basophils % (0.0-0.4) % Absolute Granulocytes (1.4-6.9) x10^3/uL Basophils # (0-0.4) x10^3/uL pO2/FiO2 Ratio % VBG pH (7.32-7.42) VBG pCO2 at Pat Temp (42-55) mm/Hg VBG pO2 at Pat Temp (25-40) mm/Hg VBG HCO3 (22-28) meq/L VBG O2 Sat (Garrett) (95-100) VBG Base Excess (-2.0-2.0) VBG Hemoglobin VBG Carboxyhemoglobin (0.0-6.9) % T HGB POC Potassium (3.5-5.1) Sodium 132 L (137-145) mmol/L Potassium 4.2 (3.5-5.1) mmol/L Chloride 110 H (98-107) mmol/L Carbon Dioxide 12 L* (22-30) mmol/L Anion Gap 14.1 BUN 22 H (7-17) mg/dL Creatinine 0.58 (0.52-1.04) mg/dL Estimated GFR 103.5 ML/MIN Glucose 165 H (74-106) mg/dL POC Glucometer 164 H (50 to 500) mg/dL Hemoglobin A1c (4.5-6.0) % Calcium 9.0 (8.4-10.2) mg/dL Phosphorus 2.5 (2.5-4.5) mg/dL Magnesium 1.7 (1.6-2.3) mg/dL Total Bilirubin 0.40 (0.2-1.3) mg/dL AST 16 (14-36) U/L ALT 13 (0-35) U/L Alkaline Phosphatase 111 (38-126) U/L Serum Total Protein 5.8 L (6.3-8.2) g/dL Albumin 3.2 L (3.5-5.0) g/dL Influenza Type A Ag (NEGATIVE) Influenza Type B Ag (NEGATIVE) RSV (PCR) (NEGATIVE) SARS-CoV-2 (PCR) (NEGATIVE) 04/05/23 04/05/23 04/05/23 Range/Units 05:12 05:15 05:15 WBC 11.0 H (4.0-10.5) x10^3/uL RBC 3.60 L (4.1-5.4) x10^6/uL Hgb 11.3 L (12.0-16.0) g/dL Hct 33.3 L (35-47) % MCV 92.5 D (78-100) fL MCH 31.4 (26-32) pg MCHC 33.9 (32-36) g/dL RDW 13.4 (11.5-14.0) % Plt Count 294 (150-450) x10^3/uL MPV 8.9 (7.5-11.0) fL Gran % (36.0-66.0) % Immature Gran % (Auto) (0.00-0.4) % Nucleat RBC Rel Count (0.00-0.1) % Eos # (Auto) (0-0.5) x10^3/uL Immature Gran # (Auto) (0.00-0.03) x10^3u/L Absolute Lymphs (auto) (1.0-4.6) x10^3/uL Absolute Monos (auto) (0.0-1.3) x10^3/uL Absolute Nucleated RBC (0.00-0.01) x10^3u/L Lymphocytes % (24.0-44.0) % Monocytes % (0.0-12.0) % Eosinophils % (0.00-5.0) % Basophils % (0.0-0.4) % Absolute Granulocytes (1.4-6.9) x10^3/uL Basophils # (0-0.4) x10^3/uL pO2/FiO2 Ratio % VBG pH (7.32-7.42) VBG pCO2 at Pat Temp (42-55) mm/Hg VBG pO2 at Pat Temp (25-40) mm/Hg VBG HCO3 (22-28) meq/L VBG O2 Sat (Garrett) (95-100) VBG Base Excess (-2.0-2.0) VBG Hemoglobin VBG Carboxyhemoglobin (0.0-6.9) % T HGB POC Potassium (3.5-5.1) Sodium (137-145) mmol/L Potassium (3.5-5.1) mmol/L Chloride (98-107) mmol/L Carbon Dioxide (22-30) mmol/L Anion Gap BUN (7-17) mg/dL Creatinine (0.52-1.04) mg/dL Estimated GFR ML/MIN Glucose (74-106) mg/dL POC Glucometer 142 H (50 to 500) mg/dL Hemoglobin A1c 11.72 H (4.5-6.0) % Calcium (8.4-10.2) mg/dL Phosphorus (2.5-4.5) mg/dL Magnesium (1.6-2.3) mg/dL Total Bilirubin (0.2-1.3) mg/dL AST (14-36) U/L ALT (0-35) U/L Alkaline Phosphatase (38-126) U/L Serum Total Protein (6.3-8.2) g/dL Albumin (3.5-5.0) g/dL Influenza Type A Ag (NEGATIVE) Influenza Type B Ag (NEGATIVE) RSV (PCR) (NEGATIVE) SARS-CoV-2 (PCR) (NEGATIVE) 04/05/23 04/05/23 04/05/23 Range/Units 06:06 06:25 07:13 WBC (4.0-10.5) x10^3/uL RBC (4.1-5.4) x10^6/uL Hgb (12.0-16.0) g/dL Hct (35-47) % MCV (78-100) fL MCH (26-32) pg MCHC (32-36) g/dL RDW (11.5-14.0) % Plt Count (150-450) x10^3/uL MPV (7.5-11.0) fL Gran % (36.0-66.0) % Immature Gran % (Auto) (0.00-0.4) % Nucleat RBC Rel Count (0.00-0.1) % Eos # (Auto) (0-0.5) x10^3/uL Immature Gran # (Auto) (0.00-0.03) x10^3u/L Absolute Lymphs (auto) (1.0-4.6) x10^3/uL Absolute Monos (auto) (0.0-1.3) x10^3/uL Absolute Nucleated RBC (0.00-0.01) x10^3u/L Lymphocytes % (24.0-44.0) % Monocytes % (0.0-12.0) % Eosinophils % (0.00-5.0) % Basophils % (0.0-0.4) % Absolute Granulocytes (1.4-6.9) x10^3/uL Basophils # (0-0.4) x10^3/uL pO2/FiO2 Ratio 21.0 % VBG pH 7.36 (7.32-7.42) VBG pCO2 at Pat Temp 30 L (42-55) mm/Hg VBG pO2 at Pat Temp 108 H (25-40) mm/Hg VBG HCO3 16.9 L* (22-28) meq/L VBG O2 Sat (Garrett) 99.6 (95-100) VBG Base Excess -7.5 L (-2.0-2.0) VBG Hemoglobin 11.1 VBG Carboxyhemoglobin 1.3 (0.0-6.9) % T HGB POC Potassium 3.9 (3.5-5.1) Sodium (137-145) mmol/L Potassium (3.5-5.1) mmol/L Chloride (98-107) mmol/L Carbon Dioxide (22-30) mmol/L Anion Gap BUN (7-17) mg/dL Creatinine (0.52-1.04) mg/dL Estimated GFR ML/MIN Glucose (74-106) mg/dL POC Glucometer 110 H 97 (50 to 500) mg/dL Hemoglobin A1c (4.5-6.0) % Calcium (8.4-10.2) mg/dL Phosphorus (2.5-4.5) mg/dL Magnesium (1.6-2.3) mg/dL Total Bilirubin (0.2-1.3) mg/dL AST (14-36) U/L ALT (0-35) U/L Alkaline Phosphatase (38-126) U/L Serum Total Protein (6.3-8.2) g/dL Albumin (3.5-5.0) g/dL Influenza Type A Ag (NEGATIVE) Influenza Type B Ag (NEGATIVE) RSV (PCR) (NEGATIVE) SARS-CoV-2 (PCR) (NEGATIVE) 04/05/23 04/05/23 04/05/23 Range/Units 07:59 09:00 09:25 WBC (4.0-10.5) x10^3/uL RBC (4.1-5.4) x10^6/uL Hgb (12.0-16.0) g/dL Hct (35-47) % MCV (78-100) fL MCH (26-32) pg MCHC (32-36) g/dL RDW (11.5-14.0) % Plt Count (150-450) x10^3/uL MPV (7.5-11.0) fL Gran % (36.0-66.0) % Immature Gran % (Auto) (0.00-0.4) % Nucleat RBC Rel Count (0.00-0.1) % Eos # (Auto) (0-0.5) x10^3/uL Immature Gran # (Auto) (0.00-0.03) x10^3u/L Absolute Lymphs (auto) (1.0-4.6) x10^3/uL Absolute Monos (auto) (0.0-1.3) x10^3/uL Absolute Nucleated RBC (0.00-0.01) x10^3u/L Lymphocytes % (24.0-44.0) % Monocytes % (0.0-12.0) % Eosinophils % (0.00-5.0) % Basophils % (0.0-0.4) % Absolute Granulocytes (1.4-6.9) x10^3/uL Basophils # (0-0.4) x10^3/uL pO2/FiO2 Ratio % VBG pH (7.32-7.42) VBG pCO2 at Pat Temp (42-55) mm/Hg VBG pO2 at Pat Temp (25-40) mm/Hg VBG HCO3 (22-28) meq/L VBG O2 Sat (Garrett) (95-100) VBG Base Excess (-2.0-2.0) VBG Hemoglobin VBG Carboxyhemoglobin (0.0-6.9) % T HGB POC Potassium (3.5-5.1) Sodium 134 L (137-145) mmol/L Potassium 4.5 (3.5-5.1) mmol/L Chloride 109 H (98-107) mmol/L Carbon Dioxide 17 L (22-30) mmol/L Anion Gap 12.5 BUN 20 H (7-17) mg/dL Creatinine 0.58 (0.52-1.04) mg/dL Estimated GFR 103.5 ML/MIN Glucose 122 H (74-106) mg/dL POC Glucometer 97 84 (50 to 500) mg/dL Hemoglobin A1c (4.5-6.0) % Calcium 9.3 (8.4-10.2) mg/dL Phosphorus (2.5-4.5) mg/dL Magnesium (1.6-2.3) mg/dL Total Bilirubin 0.70 (0.2-1.3) mg/dL AST 19 (14-36) U/L ALT 15 (0-35) U/L Alkaline Phosphatase 135 H (38-126) U/L Serum Total Protein 6.9 (6.3-8.2) g/dL Albumin 4.0 (3.5-5.0) g/dL Influenza Type A Ag (NEGATIVE) Influenza Type B Ag (NEGATIVE) RSV (PCR) (NEGATIVE) SARS-CoV-2 (PCR) (NEGATIVE) 04/05/23 Range/Units 10:05 WBC (4.0-10.5) x10^3/uL RBC (4.1-5.4) x10^6/uL Hgb (12.0-16.0) g/dL Hct (35-47) % MCV (78-100) fL MCH (26-32) pg MCHC (32-36) g/dL RDW (11.5-14.0) % Plt Count (150-450) x10^3/uL MPV (7.5-11.0) fL Gran % (36.0-66.0) % Immature Gran % (Auto) (0.00-0.4) % Nucleat RBC Rel Count (0.00-0.1) % Eos # (Auto) (0-0.5) x10^3/uL Immature Gran # (Auto) (0.00-0.03) x10^3u/L Absolute Lymphs (auto) (1.0-4.6) x10^3/uL Absolute Monos (auto) (0.0-1.3) x10^3/uL Absolute Nucleated RBC (0.00-0.01) x10^3u/L Lymphocytes % (24.0-44.0) % Monocytes % (0.0-12.0) % Eosinophils % (0.00-5.0) % Basophils % (0.0-0.4) % Absolute Granulocytes (1.4-6.9) x10^3/uL Basophils # (0-0.4) x10^3/uL pO2/FiO2 Ratio % VBG pH (7.32-7.42) VBG pCO2 at Pat Temp (42-55) mm/Hg VBG pO2 at Pat Temp (25-40) mm/Hg VBG HCO3 (22-28) meq/L VBG O2 Sat (Garrett) (95-100) VBG Base Excess (-2.0-2.0) VBG Hemoglobin VBG Carboxyhemoglobin (0.0-6.9) % T HGB POC Potassium (3.5-5.1) Sodium (137-145) mmol/L Potassium (3.5-5.1) mmol/L Chloride (98-107) mmol/L Carbon Dioxide (22-30) mmol/L Anion Gap BUN (7-17) mg/dL Creatinine (0.52-1.04) mg/dL Estimated GFR ML/MIN Glucose (74-106) mg/dL POC Glucometer 177 H (50 to 500) mg/dL Hemoglobin A1c (4.5-6.0) % Calcium (8.4-10.2) mg/dL Phosphorus (2.5-4.5) mg/dL Magnesium (1.6-2.3) mg/dL Total Bilirubin (0.2-1.3) mg/dL AST (14-36) U/L ALT (0-35) U/L Alkaline Phosphatase (38-126) U/L Serum Total Protein (6.3-8.2) g/dL Albumin (3.5-5.0) g/dL Influenza Type A Ag (NEGATIVE) Influenza Type B Ag (NEGATIVE) RSV (PCR) (NEGATIVE) SARS-CoV-2 (PCR) (NEGATIVE) Assessment/Plan (1) DKA (diabetic ketoacidosis) Current Visit: Yes Status: Acute Qualifiers: Diabetes mellitus type: type 2 Diabetes mellitus complication detail: without coma Qualified Code(s): E11.10 - Type 2 diabetes mellitus with ketoacidosis without coma Assessment & Plan: - resolved - insulin gtt stopped - gap closed - N/V resolved - Continue lantus and s/s Code(s): E11.10 - TYPE 2 DIABETES MELLITUS WITH KETOACIDOSIS WITHOUT COMA (2) Dehydration Current Visit: Yes Status: Acute Assessment & Plan: - improved overnight with IVF Code(s): E86.0 - DEHYDRATION (3) High anion gap metabolic acidosis Current Visit: Yes Status: Acute Assessment & Plan: - 2;2 DKA - resolved Code(s): E87.29 - OTHER ACIDOSIS (4) Hyperglycemia Current Visit: Yes Status: Acute Assessment & Plan: - A1C 11.72- uncontrolled - will make Op f/u appointments with endocrinology and local PCP - Continue home insulin dose since off gtt. - Pt reports she needs insulin pen tips at d/c sent in to pharmacy. - 1800 halima ADA diet Code(s): R73.9 - HYPERGLYCEMIA, UNSPECIFIED (5) Hyperkalemia Current Visit: Yes Status: Acute Assessment & Plan: - resolved Code(s): E87.5 - HYPERKALEMIA (6) Hypertension Current Visit: Yes Status: Acute Qualifiers: Hypertension type: primary hypertension Qualified Code(s): I10 - Essential (primary) hypertension Assessment & Plan: - resolved - continue home meds Code(s): I10 - ESSENTIAL (PRIMARY) HYPERTENSION (7) Hyponatremia Current Visit: Yes Status: Acute Assessment & Plan: - Na+ 134 mild- asymptomatic - 2:2 dehydration and DKA Code(s): E87.1 - HYPO-OSMOLALITY AND HYPONATREMIA (8) Leukocytosis Current Visit: Yes Status: Acute Assessment & Plan: - improved 11.0 - most likely r/t DKA no source of infection VTE: SCD PPI: Pantoprazole Next of kin: Anjana Jacome [phone] Code(s): D72.829 - ELEVATED WHITE BLOOD CELL COUNT, UNSPECIFIED
[2023-04-05 12:00] LABS: A-aADO2 39; ARTERIAL BLD GAS O2 SATURATION 96.8 % (95-100); ARTERIAL BLOOD GAS BASE EXCESS -10.4 (-2.0-2.0); ARTERIAL BLOOD GAS FIO2 21 %; ARTERIAL BLOOD GAS PCO2 29 mmHg (35-45); ARTERIAL BLOOD GAS PO2 74 mmHg (75-100); ARTERIAL BLOOD GAS pH 7.31 (7.35-7.45); CARBOXYHEMOGLOBIN 1.1 % THgb (0.0-6.9); HCO3- 14.6 (22-28); HGB O2 SAT 94.8 g/dF (94-100); paO2 pAO1 0.65
[2023-04-05 12:01] LABS: ABG SITE RIGHT BRACHIAL; ALLEN TEST OK? YES
[2023-04-05] MEDS: Sodium Chloride 0.9% 1000 ML 1,000 ML IV SCH (12:57)
[2023-04-05] MEDS: HUMALOG SQ PRN ×3 (12:57→21:27)
[2023-04-05 13:46] LABS: ALBUMIN 3.4 g/dL (3.5-5.0); ANION GAP 14.9 MEQ/L (5-15); BILIRUBIN,TOTAL 0.7 mg/dL (0.2-1.3); Calcium 8.8 mg/dL (8.4-10.2); Creatinine 1 0.51 mg/dL (0.52-1.04); EST GLOMERULAR FILTRATION RATE 106.8 ML/MIN; Potassium 4.8 mmol/L (3.5-5.1)
[2023-04-05] MEDS ORDERED: SODIUM BICARBONATE PO SCH (14:30)
[2023-04-05] MEDS: SODIUM BICARBONATE PO SCH ×2 (14:57→21:28)
[2023-04-05] MEDS: COREG 12.5 MG PO SCH (18:16)
[2023-04-05 18:22] LABS: ALBUMIN 3.2 g/dL (3.5-5.0); ANION GAP 14.2 MEQ/L (5-15); BILIRUBIN,TOTAL 0.7 mg/dL (0.2-1.3); Calcium 8.7 mg/dL (8.4-10.2); Creatinine 1 0.56 mg/dL (0.52-1.04); EST GLOMERULAR FILTRATION RATE 104.4 ML/MIN; Potassium 4.6 mmol/L (3.5-5.1); Total Protein 5.7 g/dL (6.3-8.2)
[2023-04-05] MEDS ORDERED: ZOCOR 20MG PO SCH (22:00)
[2023-04-05] MEDS ORDERED: LIPITOR 40MG PO SCH (22:00)
[2023-04-06] MEDS ORDERED: MORPHINE SULFATE 4 MG INJ ONE (00:41)
[2023-04-06] MEDS ORDERED: Zofran 4 MG/2 ML VIAL ONE (00:41)
[2023-04-06] MEDS: Sodium Chloride 0.9% 1000 ML 1,000 ML IV SCH (02:19)
[2023-04-06 04:58] LABS: Hematocrit 31.6 % (35-47); Hemoglobin 10.2 g/dL (12.0-16.0); Mean Cell Volume 95.5 fL (78-100); Mean Corpuscular Hemoglobin 30.8 pg (26-32); Mean Corpuscular Hgb Concent. 32.3 g/dL (32-36); Platelet Count 218 x10^3/uL (150-450); Red Blood Count 3.31 x10^6/uL (4.1-5.4); White Blood Count 6.2 x10^3/uL (4.0-10.5)
[2023-04-06] MEDS ORDERED: FLAGYL 500 MG IVPB 500 MG/100 ML BAG IV ONE (05:13)
[2023-04-06 05:51] LABS: ALBUMIN 3.1 g/dL (3.5-5.0); ANION GAP 11.9 MEQ/L (5-15); BILIRUBIN,TOTAL 0.5 mg/dL (0.2-1.3); Calcium 8.8 mg/dL (8.4-10.2); Creatinine 1 0.49 mg/dL (0.52-1.04); EST GLOMERULAR FILTRATION RATE 107.8 ML/MIN; Potassium 3.9 mmol/L (3.5-5.1); Total Protein 5.7 g/dL (6.3-8.2)
[2023-04-06 07:40] VITALS: TEMP 96.8
[2023-04-06] MEDS: Carafate 1 GM PO SCH ×2 (08:04→11:23)
[2023-04-06] MEDS: COREG 12.5 MG PO SCH (08:17)
[2023-04-06] MEDS: HUMALOG SQ PRN ×2 (08:23→12:22)
[2023-04-06] MEDS: Lantus Insulin SQ SCH (08:23)
[2023-04-06] MEDS: clonazePAM PO PRN (09:27)
[2023-04-06] MEDS: Imdur 30 MG PO SCH (09:27)
[2023-04-06] MEDS: ACYCLOVIR PO SCH (09:27)
[2023-04-06] MEDS: BUSPAR 5 MG PO SCH (09:27)
[2023-04-06] MEDS: Protonix 40MG Tablet PO SCH (09:28)
[2023-04-06] MEDS: SODIUM BICARBONATE PO SCH (09:28)
[2023-04-06] MEDS: Robaxin PO SCH (09:28)
[2023-04-06] MEDS: Cozaar 50 MG PO SCH (09:33)
[2023-04-06] MEDS ORDERED: Sodium Chloride 0.9% 500 ML 500 ML IV ONE (09:33)
[2023-04-06 09:35] VITALS: RESP 20
[2023-04-06] MEDS ORDERED: Sodium Chloride 0.9% 1000 ML 1,000 ML IV SCH (09:45)
[2023-04-06] MEDS ORDERED: VALACYCLOVIR HCL 1000 MG PO SCH (10:00)
--- NOTE | 2023-04-06 10:59 | PCM.DS ---
Discharge Summary Date of Admission: 04/04/23 21:29 Date of Discharge: 04/06/23 Admitting Physician: BERTHA DEVI MD Consults: Consults on Case 04/05/23 09:00 Case Management SDWA DC Needs Assessment ROUTINE Primary Care Provider: RYLIE RUIZ DO Allergies Allergies Latex, Natural Rubber Allergy (Verified 04/04/23 16:52) Penicillins Allergy (Verified 04/04/23 16:52) Hospital Summary - Hospital Course Hospital Course: 04/05/23 Ms. Muñoz is a 62 year old female with a past medical history significant for hypertension, hyperlipidemia, GERD and diabetes with 7 previous episodes of DKA. Most recently this happened 1 month ago and was at [facility]. She reports she had some changes in her insulin which has caused her most recent issues. 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 She was monitoring her sugars at home but noticed that they were continuing to rise despite giving herself some sliding scale insulin. She started breathing more rapidly, which she took to be a sign of DKA, and came to the ER. There, she was found to have a blood sugar > 500 associated with a sodium of 129 and bicarb < 5. She was tachycardic with HR in the 130s. She was given IVFs, insulin and recommended for admission. She has been on an insulin gtt and this has been stopped this morning. Gap is closed and she was transitioned to her home insulin dose. She is no longer having N/V. She was able to tolerate a clear liquid diet. Will transition her diet since she is doing well. Will change her to a med-surg bed. Na+ and K+ are at baseline. If she continues to do well she can leave this afternoon or in the AM. She denies any further concerns at this time. 04/06/23 Pt sitting up in bed. She is feeling much better and would like to go home. Carbon dioxide is 15. Increased IVF and gave 500ml fluid. Continue sodium bicarb. If lab improves will d/c later today. She denies CP, SOB, abd. pain, N/V/D. - Vitals & Intake/Output Vital Signs: Vital Signs Temperature 96.8 F 04/06/23 07:40 Pulse Rate 83 04/06/23 09:34 Respiratory Rate 20 04/06/23 09:34 Blood Pressure 127/73 04/06/23 09:34 O2 Sat by Pulse Oximetry 96 04/06/23 04:00 Intake & Output: Intake & Output 04/03/23 04/04/23 04/05/23 04/06/23 11:59 11:59 11:59 11:59 Intake Total 0 2769 Output Total 1300 1400 Balance -1300 1369 Weight 61.1 kg 64.5 kg - Lab Result Diagrams: 04/06/23 04:31 04/06/23 11:30 Lab Results-Last 24 Hrs: Lab Results-Last 24 Hours 04/05/23 04/05/23 04/05/23 Range/Units 11:54 11:55 13:22 WBC (4.0-10.5) x10^3/uL RBC (4.1-5.4) x10^6/uL Hgb (12.0-16.0) g/dL Hct (35-47) % MCV (78-100) fL MCH (26-32) pg MCHC (32-36) g/dL RDW (11.5-14.0) % Plt Count (150-450) x10^3/uL MPV (7.5-11.0) fL Puncture Site RIGHT BRACHIAL pCO2 29 L (35-45) mmHg pO2 74 L (75-100) mmHg Base Excess -10.4 L (-2.0-2.0) O2 Saturation 94.8 (94-100) g/dF ABG pH 7.31 L (7.35-7.45) ABG HCO3 14.6 L* (22-28) ABG O2 Sat (Measured) 96.8 (95-100) % Robert Test YES A-a Gradient 39 a/A Ratio 0.65 Hemoglobin 11.0 Carboxyhemoglobin 1.1 (0.0-6.9) % THgb Methemoglobin 1.0 L (1.4-1.5) % Potassium 5.0 4.8 (3.5-5.1) Temperature 37.0 C POC O2 Flow Rate 21 % Sodium 129 L (137-145) mmol/L Chloride 107 (98-107) mmol/L Carbon Dioxide 13 L* (22-30) mmol/L Anion Gap 14.9 (5-15) MEQ/L BUN 18 H (7-17) mg/dL Creatinine 0.51 L (0.52-1.04) mg/dL Estimated GFR 106.8 ML/MIN Glucose 228 H (74-106) mg/dL POC Glucometer 229 H (74 to 106) mg/dL Calcium 8.8 (8.4-10.2) mg/dL Total Bilirubin 0.70 (0.2-1.3) mg/dL AST 17 (14-36) U/L ALT 13 (0-35) U/L Alkaline Phosphatase 114 (38-126) U/L Serum Total Protein 6.0 L (6.3-8.2) g/dL Albumin 3.4 L (3.5-5.0) g/dL 04/05/23 04/05/23 04/05/23 Range/Units 16:24 18:00 21:21 WBC (4.0-10.5) x10^3/uL RBC (4.1-5.4) x10^6/uL Hgb (12.0-16.0) g/dL Hct (35-47) % MCV (78-100) fL MCH (26-32) pg MCHC (32-36) g/dL RDW (11.5-14.0) % Plt Count (150-450) x10^3/uL MPV (7.5-11.0) fL Puncture Site pCO2 (35-45) mmHg pO2 (75-100) mmHg Base Excess (-2.0-2.0) O2 Saturation (94-100) g/dF ABG pH (7.35-7.45) ABG HCO3 (22-28) ABG O2 Sat (Measured) (95-100) % Robert Test A-a Gradient a/A Ratio Hemoglobin Carboxyhemoglobin (0.0-6.9) % THgb Methemoglobin (1.4-1.5) % Potassium 4.6 (3.5-5.1) Temperature C POC O2 Flow Rate % Sodium 130 L (137-145) mmol/L Chloride 107 (98-107) mmol/L Carbon Dioxide 13 L* (22-30) mmol/L Anion Gap 14.2 (5-15) MEQ/L BUN 15 (7-17) mg/dL Creatinine 0.56 (0.52-1.04) mg/dL Estimated GFR 104.4 ML/MIN Glucose 228 H (74-106) mg/dL POC Glucometer 152 H 232 H (74 to 106) mg/dL Calcium 8.7 (8.4-10.2) mg/dL Total Bilirubin 0.70 (0.2-1.3) mg/dL AST 18 (14-36) U/L ALT 12 (0-35) U/L Alkaline Phosphatase 114 (38-126) U/L Serum Total Protein 5.7 L (6.3-8.2) g/dL Albumin 3.2 L (3.5-5.0) g/dL 04/06/23 04/06/23 04/06/23 Range/Units 04:31 04:31 07:18 WBC 6.2 (4.0-10.5) x10^3/uL RBC 3.31 L (4.1-5.4) x10^6/uL Hgb 10.2 L (12.0-16.0) g/dL Hct 31.6 L (35-47) % MCV 95.5 (78-100) fL MCH 30.8 (26-32) pg MCHC 32.3 (32-36) g/dL RDW 14.0 (11.5-14.0) % Plt Count 218 (150-450) x10^3/uL MPV 9.0 (7.5-11.0) fL Puncture Site pCO2 (35-45) mmHg pO2 (75-100) mmHg Base Excess (-2.0-2.0) O2 Saturation (94-100) g/dF ABG pH (7.35-7.45) ABG HCO3 (22-28) ABG O2 Sat (Measured) (95-100) % Robert Test A-a Gradient a/A Ratio Hemoglobin Carboxyhemoglobin (0.0-6.9) % THgb Methemoglobin (1.4-1.5) % Potassium 3.9 (3.5-5.1) Temperature C POC O2 Flow Rate % Sodium 134 L (137-145) mmol/L Chloride 111 H (98-107) mmol/L Carbon Dioxide 15 L* (22-30) mmol/L Anion Gap 11.9 (5-15) MEQ/L BUN 12 (7-17) mg/dL Creatinine 0.49 L (0.52-1.04) mg/dL Estimated GFR 107.8 ML/MIN Glucose 225 H (74-106) mg/dL POC Glucometer 230 H (74 to 106) mg/dL Calcium 8.8 (8.4-10.2) mg/dL Total Bilirubin 0.50 (0.2-1.3) mg/dL AST 18 (14-36) U/L ALT 11 (0-35) U/L Alkaline Phosphatase 103 (38-126) U/L Serum Total Protein 5.7 L (6.3-8.2) g/dL Albumin 3.1 L (3.5-5.0) g/dL Micro Results-Entire Visit: Accuchecks Date 04/06/23 Date 04/05/23 Date 04/05/23 Time 21:00 Time 16:30 - Procedures and Test Procedures and Tests throughout Hospitalization: Therapy Orders & Screens 04/05/23 09:00 OT Screen per Nursing Assess ONCE Comment: Protocol Order Physician Instructions: Greater than 3 points order OT Admission Screening Reason For Exam: Triggered on Admission Diagnosis: DKA Open Wound/Cellutlitis/Pressure Ulcers: No Acute Fx/ORIF/Change in wt bearing status: No Severe MUSCULOSKELETAL pain: Yes ADL Dysfunction: No Acute CVA w/Hemiparesis/Hemiplegia: No Decreased Functional Mobility/Strength: No Sprain/Strain: No Acute Post-op Mobility Dysfunction: No Total Points: 5 PT Screen per Nursing Assess ONCE Comment: Protocol Order Physician Instructions: Greater than 3 points order PT Admission Screenin Reason For Exam: Triggered on Admission Diagnosis: DKA Open Wound/Cellutlitis/Pressure Ulcers: No Acute Fx/ORIF/Change in wt bearing status: No Severe MUSCULOSKELETAL pain: Yes ADL Dysfunction: No Acute CVA w/Hemiparesis/Hemiplegia: No Decreased Functional Mobility/Strength: No Sprain/Strain: No Acute Post-op Mobility Dysfunction: No Total Points: 5 Discharge Exam General Appearance: no apparent distress, alert Neurologic Exam: alert, oriented x 3, cooperative, normal mood/affect, nml cereb ellar function, sensation nml, No motor deficits Eye Exam: PERRL, EOMI, eyes nml inspection Ears, Nose, Throat Exam: normal ENT inspection, pharynx normal, moist mucous membranes Neck Exam: normal inspection, non-tender, supple, full range of motion Respiratory Exam: normal breath sounds, lungs clear, No respiratory distress Cardiovascular Exam: regular rate/rhythm, normal heart sounds Gastrointestinal/Abdomen Exam: soft, No tenderness, No mass Pelvic Exam: deferred Rectal Exam: deferred Back Exam: normal inspection, normal range of motion, No CVA tenderness, No vertebral tenderness Extremity Exam: normal inspection, normal range of motion Skin Exam: normal color, warm, dry Final Diagnosis/Problem List - Final Discharge Diagnosis/Problem (1) DKA (diabetic ketoacidosis) Current Visit: Yes Status: Acute Code(s): E11.10 - TYPE 2 DIABETES MELLITUS WITH KETOACIDOSIS WITHOUT COMA (2) Dehydration Current Visit: Yes Status: Acute Code(s): E86.0 - DEHYDRATION (3) High anion gap metabolic acidosis Current Visit: Yes Status: Acute Code(s): E87.29 - OTHER ACIDOSIS (4) Hyperglycemia Current Visit: Yes Status: Acute Code(s): R73.9 - HYPERGLYCEMIA, UNSPECIFIED (5) Hyperkalemia Current Visit: Yes Status: Acute Code(s): E87.5 - HYPERKALEMIA (6) Hypertension Current Visit: Yes Status: Acute Code(s): I10 - ESSENTIAL (PRIMARY) HYPERTENSION (7) Hyponatremia Current Visit: Yes Status: Acute Code(s): E87.1 - HYPO-OSMOLALITY AND HYPONATREMIA (8) Leukocytosis Current Visit: Yes Status: Acute Assessment & Plan: (1) DKA (diabetic ketoacidosis) Current Visit: Yes Status: Acute Qualifiers: Diabetes mellitus type: type 2 Diabetes mellitus complication detail: without coma Qualified Code(s): E11.10 - Type 2 diabetes mellitus with ketoacidosis without coma Assessment & Plan: - resolved - insulin gtt stopped - gap closed - N/V resolved - Continue lantus and s/s Code(s): E11.10 - TYPE 2 DIABETES MELLITUS WITH KETOACIDOSIS WITHOUT COMA (2) Dehydration Current Visit: Yes Status: Acute Assessment & Plan: - improved overnight with IVF 1/4 - carbon dioxide 15 most likely r/t dehydration- 500ml fluid bouls and IVF fluids increased - Cont sodium bicarb - Will recheck labs at noon. Code(s): E86.0 - DEHYDRATION (3) High anion gap metabolic acidosis Current Visit: Yes Status: Acute Assessment & Plan: - 2;2 DKA - resolved Code(s): E87.29 - OTHER ACIDOSIS (4) Hyperglycemia Current Visit: Yes Status: Acute Assessment & Plan: - A1C 11.72- uncontrolled - will make Op f/u appointments with endocrinology and local PCP - Continue home insulin dose since off gtt. - Pt reports she needs insulin pen tips at d/c sent in to pharmacy. - 1800 halima ADA diet Code(s): R73.9 - HYPERGLYCEMIA, UNSPECIFIED (5) Hyperkalemia Current Visit: Yes Status: Acute Assessment & Plan: - resolved Code(s): E87.5 - HYPERKALEMIA (6) Hypertension Current Visit: Yes Status: Acute Qualifiers: Hypertension type: primary hypertension Qualified Code(s): I10 - Essential (primary) hypertension Assessment & Plan: - resolved - continue home meds Code(s): I10 - ESSENTIAL (PRIMARY) HYPERTENSION (7) Hyponatremia Current Visit: Yes Status: Acute Assessment & Plan: - Na+ 134 mild- asymptomatic - 2:2 dehydration and DKA / - Na+ 134 resolved Code(s): E87.1 - HYPO-OSMOLALITY AND HYPONATREMIA (8) Leukocytosis Current Visit: Yes Status: Acute Assessment & Plan: - improved 11.0 - most likely r/t DKA no source of infection 04/06 - resolved, WBC 6.2 Code(s): D72.829 - ELEVATED WHITE BLOOD CELL COUNT, UNSPECIFIED - Discharge Discharge Date: 04/06/23 Disposition: Home, Self-Care Condition: Stable Prescriptions: New Pen Needle, Diabetic [Insulin Pen Needle] 1 each MC QID 24 Days #100 units Sodium Bicarbonate 650 mg PO BID 3 Days #6 tablet Continue Insulin Glargine [Lantus Insulin] 25 units SQ BID carvediloL [Carvedilol] 12.5 tab PO BIDWMEALS PANTOPRAZOLE 40 mg Tablet [Protonix 40MG Tablet] 40 mg PO DAILY Losartan Potassium 50 mg [Cozaar 50 MG] 50 mg PO DAILY Atorvastatin Calcium [Lipitor 40Mg] 40 mg PO HS Insulin Aspart [Novolog] See Protocol SQ AC Sucralfate 1 gm [Carafate 1 GM] 1 mg PO ACHS clonazePAM [Clonazepam] 0.5 mg PO BID PRN PRN Reason: Anxiety Acetaminophen [Tylenol] 650 mg PO Q4H PRN PRN MDD 4g PRN Reason: Pain, Fever, Headache Isosorbide Mononitrate 30 mg [Imdur 30 MG] 30 mg PO DAILY Methocarbamol [Robaxin] 750 mg PO TID Divalproex Sodium [Depakote] 500 mg PO BID Buspirone HCl 5 mg [Buspar 5 mg] 15 mg PO BID Valacyclovir HCl [Valtrex] 1,000 mg PO DAILY Additional Instructions: RAVINDER [facility] [employer], IS WORKING TO SEE IF SHE CAN ASSIST IN FINDING YOU SOME ALTERNATIVE HOUSING. SHE WILL BE REACHING OUT TO YOUR SIG OTHER. YOU CAN FOLLOW UP WITH HER AT [phone] ext [phone] REACH IS A SERVICE THAT MAY BE ABLE TO HELP WELL- THEIR PHONE NUMBER IS [phone] IF YOU BECOME INTERESTED IN A USP, [facility] IS IN [place] AND YOU CAN REACH THEM AT [phone] Please follow up james Ruiz as scheduled. You will need a repeat CMP at that time. Bicarb was low at d/c and sent home with 3 days of BID bicarb PO. Follow up with: RYLIE RUIZ DO [Primary Care Provider] - 04/12/23 11:00 am BRAD JOHNSTON [NON-STAFF PHY W/O PRIVILEGES] - 04/10/23 2:15 pm
[2023-04-06 11:28] LABS: ALBUMIN 3.2 g/dL (3.5-5.0); ANION GAP 11.7 MEQ/L (5-15); BILIRUBIN,TOTAL 0.5 mg/dL (0.2-1.3); Calcium 8.7 mg/dL (8.4-10.2); Creatinine 1 0.46 mg/dL (0.52-1.04); EST GLOMERULAR FILTRATION RATE 109.5 ML/MIN; MAGNESIUM 1.6 mg/dL (1.6-2.3); Potassium 3.9 mmol/L (3.5-5.1); Total Protein 5.8 g/dL (6.3-8.2)
[2023-04-06 14:47] VITALS: BP 122/76; PULSE 86; O2SAT 99
== END 2023-04-06 15:56 | disposition home or self-care (01) ==
LOC: ED 16:25 → ICU 21:29
PROVIDERS: ADMIT Internal Medicine Nephrology; ATTEND Internal Medicine Nephrology
DX: E11.10 Type 2 diabetes mellitus with ketoacidosis without coma (principal); E86.0 Dehydration; E87.5 Hyperkalemia; I10 Essential (primary) hypertension; E87.1 Hypo-osmolality and hyponatremia; D72.829 Elevated white blood cell count, unspecified; E78.5 Hyperlipidemia, unspecified; K21.9 Gastro-esophageal reflux disease without esophagitis; R00.0 Tachycardia, unspecified; Z79.899 Other long term (current) drug therapy; Z20.828 Contact with and (suspected) exposure to other viral communicable diseases
CPT/HCPCS: 0241U; 36000; 36415; 36600; 80053; 82375; 82803; 82805; 82947; 83036; 83735; 84100; 85025; 85027; 93005; 93268; 94760; 96360; 99285; G0378; Q3014; J1817; J2270; J2405; A9270-GY

== ENCOUNTER 2023-04-12 11:52 | Emergency (ER) | payer MEDICARE ==
[2023-04-12] MEDS ORDERED: Sodium Chloride 0.9% 1000 ML 1,000 ML IV STA (11:58)
[2023-04-12] MEDS ORDERED: HUMULIN R IV ONE (12:01)
[2023-04-12 12:11] LABS: Absolute Neutrophil Ct (ANC) 4.26 x10^3/uL (1.4-6.9); BASOPHIL % 0.6 % (0.0-0.4); Basophil (Absolute #) 0.04 x10^3/uL (0-0.4); Eosinophil % 1.7 % (0.00-5.0); Eosinophil (Absolute #) 0.12 x10^3/uL (0-0.5); Hematocrit 35.1 % (35-47); Hemoglobin 11.5 g/dL (12.0-16.0); IMMATURE GRAN # 0.02 x10^3u/L (0.00-0.03); IMMATURE GRAN % 0.3 % (0.00-0.4); Lymphocyte (Absolute #) 2.32 x10^3/uL (1.0-4.6); Mean Cell Volume 95.4 fL (78-100); Mean Corpuscular Hemoglobin 31.3 pg (26-32); Mean Corpuscular Hgb Concent. 32.8 g/dL (32-36); Mean Platelet Volume 9.5 fL (7.5-11.0); Monocyte (Absolute #) 0.48 x10^3/uL (0.0-1.3); Monocytes % 6.6 % (0.0-12.0); Neutrophil % 58.8 % (36.0-66.0); Platelet Count 271 x10^3/uL (150-450); Red Blood Count 3.68 x10^6/uL (4.1-5.4); White Blood Count 7.2 x10^3/uL (4.0-10.5)
[2023-04-12] MEDS ORDERED: Sodium Chloride 0.9% 1000 ML 1,000 ML ONE (12:27)
[2023-04-12] MEDS ORDERED: HUMULIN R ONE (12:27)
--- NOTE | 2023-04-12 12:37 | XRAY ---
Indication: Syncope. Multiple contiguous axial images obtained through the head without contrast. Comparison: None Normal appearing brain parenchyma, ventricles, and bony calvarium for patient's age. Visualized paranasal sinuses and mastoid air cells are clear. Impression: Normal CT head without contrast exam.
--- NOTE | 2023-04-12 12:37 | XRAY ---
Indication: Syncope. Comparison: None Portable chest hyperinflated and clear. Heart not enlarged. Bony thorax intact with multiple old left rib fractures, epidural leads terminating T8/T9, and incompletely visualized cervical fusion hardware.
[2023-04-12 12:38] VITALS: TEMP 96.6
[2023-04-12 12:48] LABS: ALBUMIN 4.1 g/dL (3.5-5.0); ANION GAP 12.4 MEQ/L (5-15); BILIRUBIN,TOTAL 0.6 mg/dL (0.2-1.3); Calcium 9.4 mg/dL (8.4-10.2); Creatinine 1 0.63 mg/dL (0.52-1.04); EST GLOMERULAR FILTRATION RATE 101.5 ML/MIN; Potassium 3.8 mmol/L (3.5-5.1); Total Protein 7.2 g/dL (6.3-8.2)
[2023-04-12 13:10] LABS: Appearance Cloudy (Clear); Bilirubin Negative (Negative); Blood Negative (Negative); Glucose, Urine >=1000 mg/dL (Negative); Ketones Trace (Negative); Leukocyte Esterase Negative (Negative); Nitrite Negative (Negative); Protein,Urine Dip 30 (Negative); Specific Gravity >=1.030 (1.005-1.030)
[2023-04-12 13:11] LABS: ADD URINE CULTURE? YES (NO); Bacteria Moderate /HPF (None Seen); Epithelial Cells Few /HPF (None Seen); Hyaline Casts None Seen /LPF (0-2); RBC 0-2 /HPF (0-5)
[2023-04-12 13:12] LABS: Amphetamine,Urine NEGATIVE (NEGATIVE); Barbiturate,Urine NEGATIVE (NEGATIVE); Benzodiazepine,Urine NEGATIVE (NEGATIVE); Cocaine,Urine NEGATIVE (NEGATIVE); Methadone,Urine NEGATIVE (NEGATIVE); Opiate,Urine NEGATIVE (NEGATIVE); PCP,Urine NEGATIVE (NEGATIVE); THC,Urine POSITIVE (NEGATIVE)
--- NOTE | 2023-04-12 13:34 | ERPHSYRPT ---
- History of Present Illness Time Seen by Provider: 04/12/23 12:25 Source: patient Exam Limitations: no limitations Patient Subjective Stated Complaint: Syncope Triage Nursing Assessment: Patient brought into ED per EMS and transferred to bed per self. Patient A+O X 3. Patient's skin pale, warm and dry. Patient was at Dr. Ruiz office for hospital follow up and a syncopal episode. Patient's blood pressure initially at office was 78/54. Patient's blood sugar for EMS noted to be 414. Patient complains of headache and nausea. Blood sugar in ER noted to 284. Physician History: Patient is a 62-year-old white female who presents with a history of a brief episode of syncope while sitting in her doctor's office. EMS was called she arrived in the ER by ambulance with a report that there fingerstick blood sugar was 414. Ours was not quite so high. She denies any warnings she denied any warning she denies any chest pain shortness of breath headache etc. Witnessed: other (By office personnel) Prior Episodes: single episode today Precipitating Factors: none Loss of Consciousness: brief (seconds) Charcter of event(s): felt faint, other (Hyperglycemia) Allergies/Adverse Reactions: Latex, Natural Rubber Allergy (Verified 04/12/23 11:56) Penicillins Allergy (Verified 04/12/23 11:56) Home Medications: Acetaminophen [Tylenol] 650 mg PO Q4H PRN PRN MDD 4g 04/04/23 [History] Atorvastatin Calcium [Lipitor 40Mg] 40 mg PO HS 04/04/23 [History] Insulin Aspart [Novolog] See Protocol SQ AC 04/04/23 [History] Insulin Glargine [Lantus Insulin] 25 units SQ BID 04/04/23 [History] Losartan Potassium 50 mg [Cozaar 50 MG] 50 mg PO DAILY 04/04/23 [History] PANTOPRAZOLE 40 mg Tablet [Protonix 40MG Tablet] 40 mg PO DAILY 04/04/23 [History] Sucralfate 1 gm [Carafate 1 GM] 1 mg PO ACHS 04/04/23 [History] carvediloL [Carvedilol] 12.5 tab PO BIDWMEALS 04/04/23 [History] clonazePAM [Clonazepam] 0.5 mg PO BID PRN 04/04/23 [History] Buspirone HCl 5 mg [Buspar 5 mg] 15 mg PO BID 04/05/23 [History] Divalproex Sodium [Depakote] 500 mg PO BID 04/05/23 [History] Isosorbide Mononitrate 30 mg [Imdur 30 MG] 30 mg PO DAILY 04/05/23 [History] Methocarbamol [Robaxin] 750 mg PO TID 04/05/23 [History] Valacyclovir HCl [Valtrex] 1,000 mg PO DAILY 04/05/23 [History] Hx Tetanus, Diphtheria Vaccination/Date Given: Yes Hx Influenza Vaccination/Date Given: No Hx Pneumococcal Vaccination/Date Given: No Immunizations Up to Date: Yes Travel Risk - International Travel Have you traveled outside of the country in past 3 weeks: No - Coronavirus Screening Are you exhibiting any of the following symptoms?: No Close contact with a COVID-19 positive Pt in past 14-21 Days: No - Vaccine Status Have you recieved a Covid-19 vaccination: Yes [employer]: [employer] - Vaccination Dates Date of 2cond Vaccination (if applicable): 2019 - Past Medical History Pertinent Past Medical History: Yes Neurological History: Peripheral Neuropathy ENT History: No Pertinent History Cardiac History: High Cholesterol, Hypertension Respiratory History: No Pertinent History Endocrine Medical History: Diabetes Type II Musculoskeletal History: Fractures, Other GI Medical History: No Pertinent History History: No Pertinent History Psycho-Social History: Anxiety, Depression Female Reproductive Disorders: No Pertinent History - Past Surgical History Past Surgical History: Yes Neuro Surgical History: No Pertinent History Cardiac: Cardiac Catheterization, Cardiac Stent Respiratory: No Pertinent History Gastrointestinal: Appendectomy Genitourinary: No Pertinent History Female Surgical History: Hysterectomy, Tubal Ligation Other Surgical History: right elbow, right shoulder, right ankle, c spine fusion, lumbar spine fusion - Social History Smoking Status: Former smoker How long have you smoked: since 17 Exposure to second hand smoke: Yes Drug Use: none Patient Lives Alone: No - Review of Systems Constitutional: No Fever, No Chills Eyes: No Symptoms Ears, Nose, & Throat: No Symptoms Respiratory: No Cough, No Dyspnea Cardiac: No Chest Pain, No Edema, No Syncope Abdominal/Gastrointestinal: No Abdominal Pain, No Nausea, No Vomiting, No Diarrhea Genitourinary Symptoms: No Dysuria Musculoskeletal: No Back Pain, No Neck Pain Skin: No Rash Neurological: Other (Syncope), No Dizziness, No Focal Weakness, No Sensory Changes Psychological: No Symptoms Endocrine: No Symptoms All Other Systems: Reviewed and Negative Physical Exam - Nursing Vital Signs Nursing Vital Signs: Initial Vital Signs Temperature 96.6 F 04/12/23 12:16 Pulse Rate 74 04/12/23 12:16 Respiratory Rate 20 04/12/23 12:16 Blood Pressure 88/52 04/12/23 12:16 O2 Sat by Pulse Oximetry 100 04/12/23 12:16 Pain Scale Pain Intensity 0 - [place] Coma Scale Best Eye Response ([place]): (4) open spontaneously Best Verbal Response ([place]): (5) oriented Best Motor Response ([place]): (6) obeys commands [place] Total: 15 - Physical Exam General Appearance: no apparent distress, alert Eye Exam: bilateral eye: PERRL, EOMI Ears, Nose, Throat Exam: normal ENT inspection, pharynx normal, moist mucous membranes Neck Exam: normal inspection, non-tender, supple, full range of motion Respiratory: normal breath sounds, lungs clear, No chest tenderness, No respiratory distress Cardiovascular: regular rate/rhythm, capillary refill <2 sec, No murmur, No pulse deficit Gastrointestinal: soft, No tenderness, No distention, No mass Back Exam: normal inspection, normal range of motion, No CVA tenderness, No vertebral tenderness Extremity Exam: normal inspection, normal range of motion, pelvis stable, No tenderness Mental Status: alert, oriented x 3, cooperative tool grinder operator external Exam: normal speech, PERRL, No facial droop Coordination/Gait: normal finger to nose Motor/Sensory: no motor deficit, no sensory deficit, no pronator drift Skin Exam: normal color, warm, dry, No rash SpO2: 100 - Course Nursing assessment & vital signs reviewed: Yes EKG Interpreted by Me: RATE (73), Sinus Rhythm, NORMAL AXIS, Non-specific ST Changes (Poor R wave progression), Other - Radiology Exams Chest X-ray Interpretation: Reviewed by me - CT Exams Head CT Interpretation: Tele-radiologist Report Ordered Tests: Active Orders 24 hr Category Date Time Status EKG-ER Only STAT Care 04/12/23 11:58 Active IV Insertion STAT Care 04/12/23 11:58 Active POCT Glucose Check STAT Care 04/12/23 11:58 Active CHEST 1 VIEW (PORTABLE) Stat Exams 04/12/23 11:58 Completed HEAD WITHOUT CONTRAST [CT] Stat Exams 04/12/23 11:59 Completed CBC W DIFF Stat Lab 04/12/23 12:08 Completed CMP Stat Lab 04/12/23 12:08 Completed CULTURE,URINE Stat Lab 04/12/23 12:15 Received D-DIMER QUANTITATIVE Stat Lab 04/12/23 12:08 Completed POCT GLUCOSE Stat Lab 04/12/23 11:57 Completed POCT GLUCOSE Stat Lab 04/12/23 13:22 Completed TROPONIN Q4H Lab 04/12/23 12:08 Completed TROPONIN Q4H Lab 04/12/23 16:15 Ordered TROPONIN Q4H Lab 04/12/23 20:15 Ordered UA W/RFX UR CULTURE Stat Lab 04/12/23 12:15 Completed Urine Triage Profile Stat Lab 04/12/23 12:15 Completed Medication Summary Discontinued Medications Generic Name Dose Route Start Last Admin Trade Name Kelsey PRN Reason Stop Dose Admin Sodium Chloride 1,000 mls @ 999 mls/hr 04/12/23 11:58 04/12/23 12:30 Sodium Chloride 0.9% 1000 Ml IV 04/12/23 12:58 999 mls/hr .Q1H1M STA Administration Sodium Chloride Confirm 04/12/23 12:27 Sodium Chloride 0.9% 1000 Ml Administered 04/12/23 12:28 Dose 1,000 mls @ ud .ROUTE .STK-MED ONE Insulin Human Regular 5 unit 04/12/23 12:01 04/12/23 12:31 Insulin Regular, Human 1 Unit IV 04/12/23 12:02 5 unit STAT ONE Administration Insulin Human Regular Confirm 04/12/23 12:27 Insulin Regular, Human 1 Unit Administered 04/12/23 12:28 Dose 5 unit .ROUTE .STK-MED ONE Lab/Rad Data: Laboratory Result Diagrams 04/12/23 12:08 04/12/23 12:08 Laboratory Results 04/12/23 04/12/23 04/12/23 Range/Units 13:22 12:15 12:15 WBC (4.0-10.5) x10^3/uL RBC (4.1-5.4) x10^6/uL Hgb (12.0-16.0) g/dL Hct (35-47) % MCV (78-100) fL MCH (26-32) pg MCHC (32-36) g/dL RDW (11.5-14.0) % Plt Count (150-450) x10^3/uL MPV (7.5-11.0) fL Gran % (36.0-66.0) % Immature Gran % (Auto) (0.00-0.4) % Nucleat RBC Rel Count (0.00-0.1) % Eos # (Auto) (0-0.5) x10^3/uL Immature Gran # (Auto) (0.00-0.03) x10^3u/L Absolute Lymphs (auto) (1.0-4.6) x10^3/uL Absolute Monos (auto) (0.0-1.3) x10^3/uL Absolute Nucleated RBC (0.00-0.01) x10^3u/L Lymphocytes % (24.0-44.0) % Monocytes % (0.0-12.0) % Eosinophils % (0.00-5.0) % Basophils % (0.0-0.4) % Absolute Granulocytes (1.4-6.9) x10^3/uL Basophils # (0-0.4) x10^3/uL D-Dimer (0.0-0.50) mg/L Sodium (137-145) mmol/L Potassium (3.5-5.1) mmol/L Chloride (98-107) mmol/L Carbon Dioxide (22-30) mmol/L Anion Gap (5-15) MEQ/L BUN (7-17) mg/dL Creatinine (0.52-1.04) mg/dL Estimated GFR ML/MIN Glucose (74-106) mg/dL POC Glucometer 173 H (74 to 106) mg/dL Calcium (8.4-10.2) mg/dL Total Bilirubin (0.2-1.3) mg/dL AST (14-36) U/L ALT (0-35) U/L Alkaline Phosphatase (38-126) U/L Troponin I (0.000-0.034) ng/mL Serum Total Protein (6.3-8.2) g/dL Albumin (3.5-5.0) g/dL Urine Color Dark Yellow A (Yellow) Urine Appearance Cloudy A (Clear) Urine pH 5.0 (4.6-8.0) Ur Specific [place] >=1.030 A (1.005-1.030) Urine Protein 30 (Negative) Urine Glucose (UA) >=1000 A (Negative) mg/dL Urine Ketones Trace A (Negative) Urine Blood Negative (Negative) Urine Nitrite Negative (Negative) Urine Bilirubin Negative (Negative) Urine Urobilinogen 1.0 A (0.2) mg/dL Ur Leukocyte Esterase Negative (Negative) U Hyaline Cast (Auto) None Seen (0-2) /LPF Urine Microscopic RBC 0-2 (0-5) /HPF Urine Microscopic WBC 3-5 (0-5) /HPF Ur Epithelial Cells Few (None Seen) /HPF Urine Bacteria Moderate A (None Seen) /HPF Urine Culture Reflexed YES (NO) Urine Opiates Level NEGATIVE (NEGATIVE) Ur Methadone NEGATIVE (NEGATIVE) Urine Barbiturates NEGATIVE (NEGATIVE) Ur Phencyclidine (PCP) NEGATIVE (NEGATIVE) Urine Amphetamine NEGATIVE (NEGATIVE) U Benzodiazepine Level NEGATIVE (NEGATIVE) Urine Cocaine NEGATIVE (NEGATIVE) Urine Marijuana (THC) POSITIVE A (NEGATIVE) 04/12/23 04/12/23 04/12/23 Range/Units 12:08 12:08 12:08 WBC (4.0-10.5) x10^3/uL RBC (4.1-5.4) x10^6/uL Hgb (12.0-16.0) g/dL Hct (35-47) % MCV (78-100) fL MCH (26-32) pg MCHC (32-36) g/dL RDW (11.5-14.0) % Plt Count (150-450) x10^3/uL MPV (7.5-11.0) fL Gran % (36.0-66.0) % Immature Gran % (Auto) (0.00-0.4) % Nucleat RBC Rel Count (0.00-0.1) % Eos # (Auto) (0-0.5) x10^3/uL Immature Gran # (Auto) (0.00-0.03) x10^3u/L Absolute Lymphs (auto) (1.0-4.6) x10^3/uL Absolute Monos (auto) (0.0-1.3) x10^3/uL Absolute Nucleated RBC (0.00-0.01) x10^3u/L Lymphocytes % (24.0-44.0) % Monocytes % (0.0-12.0) % Eosinophils % (0.00-5.0) % Basophils % (0.0-0.4) % Absolute Granulocytes (1.4-6.9) x10^3/uL Basophils # (0-0.4) x10^3/uL D-Dimer 0.40 (0.0-0.50) mg/L Sodium 136 L (137-145) mmol/L Potassium 3.8 (3.5-5.1) mmol/L Chloride 97 L (98-107) mmol/L Carbon Dioxide 31 H (22-30) mmol/L Anion Gap 12.4 (5-15) MEQ/L BUN 17 (7-17) mg/dL Creatinine 0.63 (0.52-1.04) mg/dL Estimated GFR 101.5 ML/MIN Glucose 284 H (74-106) mg/dL POC Glucometer (74 to 106) mg/dL Calcium 9.4 (8.4-10.2) mg/dL Total Bilirubin 0.60 (0.2-1.3) mg/dL AST 25 (14-36) U/L ALT 20 (0-35) U/L Alkaline Phosphatase 133 H (38-126) U/L Troponin I < 0.012 (0.000-0.034) ng/mL Serum Total Protein 7.2 (6.3-8.2) g/dL Albumin 4.1 (3.5-5.0) g/dL Urine Color (Yellow) Urine Appearance (Clear) Urine pH (4.6-8.0) Ur Specific [place] (1.005-1.030) Urine Protein (Negative) Urine Glucose (UA) (Negative) mg/dL Urine Ketones (Negative) Urine Blood (Negative) Urine Nitrite (Negative) Urine Bilirubin (Negative) Urine Urobilinogen (0.2) mg/dL Ur Leukocyte Esterase (Negative) U Hyaline Cast (Auto) (0-2) /LPF Urine Microscopic RBC (0-5) /HPF Urine Microscopic WBC (0-5) /HPF Ur Epithelial Cells (None Seen) /HPF Urine Bacteria (None Seen) /HPF Urine Culture Reflexed (NO) Urine Opiates Level (NEGATIVE) Ur Methadone (NEGATIVE) Urine Barbiturates (NEGATIVE) Ur Phencyclidine (PCP) (NEGATIVE) Urine Amphetamine (NEGATIVE) U Benzodiazepine Level (NEGATIVE) Urine Cocaine (NEGATIVE) Urine Marijuana (THC) (NEGATIVE) 04/12/23 04/12/23 Range/Units 12:08 11:57 WBC 7.2 (4.0-10.5) x10^3/uL RBC 3.68 L (4.1-5.4) x10^6/uL Hgb 11.5 L (12.0-16.0) g/dL Hct 35.1 (35-47) % MCV 95.4 (78-100) fL MCH 31.3 (26-32) pg MCHC 32.8 (32-36) g/dL RDW 14.0 (11.5-14.0) % Plt Count 271 (150-450) x10^3/uL MPV 9.5 (7.5-11.0) fL Gran % 58.8 (36.0-66.0) % Immature Gran % (Auto) 0.3 (0.00-0.4) % Nucleat RBC Rel Count 0.0 (0.00-0.1) % Eos # (Auto) 0.12 (0-0.5) x10^3/uL Immature Gran # (Auto) 0.02 (0.00-0.03) x10^3u/L Absolute Lymphs (auto) 2.32 (1.0-4.6) x10^3/uL Absolute Monos (auto) 0.48 (0.0-1.3) x10^3/uL Absolute Nucleated RBC 0.00 (0.00-0.01) x10^3u/L Lymphocytes % 32.0 (24.0-44.0) % Monocytes % 6.6 (0.0-12.0) % Eosinophils % 1.7 (0.00-5.0) % Basophils % 0.6 (0.0-0.4) % Absolute Granulocytes 4.26 (1.4-6.9) x10^3/uL Basophils # 0.04 (0-0.4) x10^3/uL D-Dimer (0.0-0.50) mg/L Sodium (137-145) mmol/L Potassium (3.5-5.1) mmol/L Chloride (98-107) mmol/L Carbon Dioxide (22-30) mmol/L Anion Gap (5-15) MEQ/L BUN (7-17) mg/dL Creatinine (0.52-1.04) mg/dL Estimated GFR ML/MIN Glucose (74-106) mg/dL POC Glucometer 294 H (74 to 106) mg/dL Calcium (8.4-10.2) mg/dL Total Bilirubin (0.2-1.3) mg/dL AST (14-36) U/L ALT (0-35) U/L Alkaline Phosphatase (38-126) U/L Troponin I (0.000-0.034) ng/mL Serum Total Protein (6.3-8.2) g/dL Albumin (3.5-5.0) g/dL Urine Color (Yellow) Urine Appearance (Clear) Urine pH (4.6-8.0) Ur Specific [place] (1.005-1.030) Urine Protein (Negative) Urine Glucose (UA) (Negative) mg/dL Urine Ketones (Negative) Urine Blood (Negative) Urine Nitrite (Negative) Urine Bilirubin (Negative) Urine Urobilinogen (0.2) mg/dL Ur Leukocyte Esterase (Negative) U Hyaline Cast (Auto) (0-2) /LPF Urine Microscopic RBC (0-5) /HPF Urine Microscopic WBC (0-5) /HPF Ur Epithelial Cells (None Seen) /HPF Urine Bacteria (None Seen) /HPF Urine Culture Reflexed (NO) Urine Opiates Level (NEGATIVE) Ur Methadone (NEGATIVE) Urine Barbiturates (NEGATIVE) Ur Phencyclidine (PCP) (NEGATIVE) Urine Amphetamine (NEGATIVE) U Benzodiazepine Level (NEGATIVE) Urine Cocaine (NEGATIVE) Urine Marijuana (THC) (NEGATIVE) - Progress Progress: improved Medical Desision Making - Diagnostic Testing Diagnostic test were ordered, analyzed, and reviewed by me: Yes Radiological Interpretation: Reviewed by me - Risk of complications Low Risk: Low risk of morbidity from additional dx testing or treatment - Departure Departure Disposition: Home Clinical Impression: Syncope Condition: Stable Critical Care Time: No Referrals: RYLIE RUIZ DO [Primary Care Provider] - Follow up/PCP as directed Instructions: Syncope (Fainting) (DC)
[2023-04-12 14:02] VITALS: BP 124/63; PULSE 74; RESP 16; O2SAT 97
== END 2023-04-12 14:25 | disposition home or self-care (01) ==
LOC: ED 11:52
DX: R55 Syncope and collapse (principal); E78.5 Hyperlipidemia, unspecified; I10 Essential (primary) hypertension; E11.42 Type 2 diabetes mellitus with diabetic polyneuropathy; Z79.4 Long term (current) use of insulin; Z79.899 Other long term (current) drug therapy
CPT/HCPCS: 36000; 36415; 70450; 71045; 80053; 80307; 81001; 82947; 84484; 85025; 85379; 87077; 87086; 87186; 93005; 96374; 99284; J1815